=== PATIENT | male | born 1980 | race Caucasian/White ===

== ENCOUNTER 2018-10-26 23:58 | Emergency (ER) | payer BC, SELFPAY ==
[2018-10-27] MEDS ORDERED: IPRATROPIUM BROM 0.5MG/2.5ML ONE (00:40)
[2018-10-27] MEDS ORDERED: ALBUTEROL 2.5 MG/3 ML NEB SOL ONE (00:40)
[2018-10-27] MEDS ORDERED: ASPIRIN 81 MG CHEWABLE TABLET ONE (00:40)
[2018-10-27] MEDS ORDERED: HYDROCODONE/CHLORPHEN 5 ML/OSYR ONE (00:41)
[2018-10-27] MEDS ORDERED: ONDANSETRON 4 MG (ODT) TAB ONE (00:41)
[2018-10-27 01:14] LABS: Absolute Lymphocytes (CBC) 1.8 K/uL (0.7-4.9); Absolute Monocytes 0.9 K/uL (0.1-1.3); Absolute Neutrophil 3.8 K/uL (1.8-8.0); Basophils % 1.4 % (0-1.3); Eosinophils % 6.2 % (0-4.4); Hematocrit 48.1 % (39.6-49.0); MPV 9.7 fL (7.6-11.3); Monocytes % 12.7 % (3.3-12.3)
[2018-10-27 01:36] LABS: BUN Blood Urea Nitrogen 17 mg/dL (7-18); Bicarbonate 26 mmol/L (21-32); Glucose Level 123 mg/dL (74-106); Magnesium 2.2 mg/dL (1.8-2.4); NT PRO-BNP 9 pg/mL (<125); Potassium 3.7 mmol/L (3.5-5.1); Sodium Level 137 mmol/L (136-145); Troponin I < 0.02 ng/mL (0.0-0.045)
[2018-10-27] MEDS ORDERED: NA CHLORIDE 0.9% 1,000 ML ONE (02:07)
--- NOTE | 2018-10-27 02:19 | EDPHYS ---
Physician Documentation [facility] Name: Grzegorz Hamilton Age: 38 yrs Sex: Male : 1980 Arrival Date: 10/26/2018 Time: 23:58 Bed 26 Private MD: ED Physician Davin Amor HPI: 10/27 00:25 This 38 yrs old Male presents to ER via Ambulatory with complaints of Cough, cp Nausea, Decreased Appetite, Abscess. 00:25 The patient or guardian reports cough, that is constant, with no sputum. cp 00:25 Onset: The symptoms/episode began/occurred 4 day(s) ago. cp 00:25 Severity of symptoms: in the emergency department the symptoms are unchanged. cp Associated signs and symptoms: Pertinent positives: chest pain, nausea, sore throat, decreased appetite, Pertinent negatives: fever, active vomiting. Historical: - Allergies: 00:14 NKA; fc - Home Meds: 00:14 None [Active]; fc - PMHx: 00:14 Diverticulitis; GERD; fc - PSHx: 00:14 None; fc - Immunization history:: Last tetanus immunization: unknown, Flu vaccine is not up to date. - Social history:: Smoking status: Patient/guardian denies using tobacco, the patient reports quitting approximately 2 years ago, Patient/guardian denies using alcohol, street drugs. - Ebola Screening: : Patient negative for fever greater than or equal to 101.5 degrees Fahrenheit, and additional compatible Ebola Virus Disease symptoms Patient denies exposure to infectious person Patient denies travel to an Ebola-affected area in the 21 days before illness onset. ROS: 00:30 Constitutional: Positive for poor PO intake, Negative for fever. cp 00:30 Eyes: Negative for injury, pain, redness, and discharge. cp 00:30 ENT: Positive for sore throat, Negative for drainage from ear(s), ear pain, difficulty swallowing, difficulty handling secretions. 00:30 Cardiovascular: Positive for chest pain, of the lower sternum, Negative for edema, palpitations. 00:30 Respiratory: Positive for cough, with no reported sputum, shortness of breath, Negative for hemoptysis, wheezing. 00:30 Abdomen/GI: Positive for nausea, Negative for abdominal pain, diarrhea, constipation, active vomiting. 00:30 Back: Negative for pain at rest, pain with movement. 00:30 : Negative for urinary symptoms. 00:30 Skin: Negative for cellulitis, rash. 00:30 Neuro: Negative for altered mental status, headache, numbness, weakness. 00:30 All other systems are negative. Exam: 00:38 Constitutional: The patient appears in no acute distress, alert, awake, cp non-diaphoretic, non-toxic, well developed, well nourished. 00:38 Head/Face: Normocephalic, atraumatic. cp 00:38 Eyes: Periorbital structures: appear normal, Pupils: equal, round, and reactive to light and accomodation, Extraocular movements: intact throughout, Conjunctiva: normal, no exudate, no injection, Lids and lashes: appear normal, bilaterally. 00:38 ENT: External ear(s): are unremarkable, Ear canal(s): are normal, clear, TM's: bulging, is not appreciated, bilaterally, dullness, bilaterally, erythema, is not appreciated, bilaterally, Nose: is normal, Mouth: Lips: moist, Oral mucosa: pink and intact, moist, Posterior pharynx: is normal, airway is patent, no erythema, no exudate, Voice: is normal. 00:38 Neck: ROM/movement: is normal, is supple, without pain, no range of motions limitations, no meningismus, no nuchal rigidity, Lymph nodes: no appreciated lymphadenopathy. 00:38 Chest/axilla: Inspection: normal, Palpation: is normal, no crepitus, no tenderness. 00:38 Cardiovascular: Rate: normal, Rhythm: regular, Edema: is not appreciated, JVD: is not appreciated. 00:38 Respiratory: the patient does not display signs of respiratory distress, Respirations: labored breathing, is not present, intercostal retractions, are absent, splinting, is not noted, tachypnea, is not appreciated, Breath sounds: bronchial sounds, that are mild, are heard diffusely, decreased breath sounds, are not appreciated, stridor, is not appreciated, + upper airway congestion. 00:38 Abdomen/GI: Inspection: obese Bowel sounds: active, all quadrants, Palpation: abdomen is soft and non-tender, in all quadrants. 00:38 Back: pain, is absent, ROM is normal. 00:38 Skin: cellulitis, is not appreciated, no rash present. 00:38 Neuro: Orientation: to person, place \T\ time. Mentation: is normal, Cerebellar function: is grossly normal, Motor: moves all fours, strength is normal, Sensation: is normal. 01:05 ECG was reviewed by the Attending Physician. cp Vital Signs: 00:05 BP 109 / 73; Pulse 98; Resp 20; Temp 98.7(O); Pulse Ox 96% on R/A; Weight 127.01 kg fc (R); Height 6 ft. 0 in. (182.88 cm) (R); Pain 7/10; 01:16 BP 106 / 57; Pulse 94; Resp 18; Pulse Ox 100% on R/A; Pain 2/10; mg2 02:39 BP 102 / 46; Pulse 83; Resp 18; Pulse Ox 100% on R/A; Pain 0/10; mg2 00:05 Body Mass Index 37.97 (127.01 kg, 182.88 cm) fc MDM: 00:09 Patient medically screened. cp 01:00 Differential Diagnosis: Bronchitis Influenza Upper Respiratory Infection Sinusitis cp Pneumonia. 02:17 Data reviewed: vital signs, nurses notes, lab test result(s), radiologic studies, plain cp films, and as a result, I will discharge patient. 02:17 Test interpretation: by ED physician or midlevel provider: ECG, plain radiologic cp studies. Counseling: I had a detailed discussion with the patient and/or guardian regarding: the historical points, exam findings, and any diagnostic results supporting the discharge/admit diagnosis, lab results, radiology results, to return to the emergency department if symptoms worsen or persist or if there are any questions or concerns that arise at home. 02:17 Response to treatment: the patient's symptoms have markedly improved after treatment, cp and as a result, I will discharge patient. 12 00:20 Order name: Influenza Screen (a \T\ B) cp 10/27 00:20 Order name: Strep cp 10/27 00:23 Order name: CBC with Diff cp 10/27 00:23 Order name: BMP cp 10/27 00:23 Order name: Todd Screen Profile cp 10/27 00:23 Order name: Magnesium cp 10/27 00:23 Order name: Troponin I cp 10/27 00:23 Order name: BNP cp 10/27 01:19 Order name: CBC with Automated Diff; Complete Time: 01:21 EDMS 10/27 01:21 Interpretation: Normal except: RBC 5.60; MN% 12.7; EOSINOPHIL % 6.2; BASO% 1.4. cp 10/27 01:34 Order name: Influenza Screen (A ; Complete Time: 01:50 EDMS 10/27 01:34 Order name: Group A Streptococcus Rapid Sc; Complete Time: 01:50 EDMS 10/27 01:37 Order name: Basic Metabolic Panel; Complete Time: 01:50 EDMS 10/27 01:50 Interpretation: Normal except: GLUC 123; CRE 1.60; GFR 48. cp 10/27 01:37 Order name: Troponin I; Complete Time: 01:50 EDMS 10/27 01:37 Order name: NT PRO-BNP; Complete Time: 01:50 EDMS 10/27 00:23 Order name: IV; Complete Time: 00:56 cp 10/27 00:23 Order name: EKG; Complete Time: 00:24 cp 10/27 00:23 Order name: EKG - Nurse/Tech; Complete Time: 00:56 cp 10/27 01:21 Order name: XRAY Chest Pa And Lat (2 Views) cp 10/27 01:37 Order name: Magnesium; Complete Time: 01:50 EDMS 10/27 01:50 Order name: Todd Screen; Complete Time: 02:10 EDMS 06 01:54 Order name: PO challenge; Complete Time: 02:05 cp EC:05 Rate is 90 beats/min. Rhythm is regular. VA interval is normal. QRS interval is normal. cp QT interval is normal. Interpreted by me. Reviewed by me. Administered Medications: 00:56 Drug: Tussionex Pennkinetic ER 5 ml Route: PO; mg2 02:41 Follow up: Response: No adverse reaction; Marked relief of symptoms mg2 00:56 Drug: Albuterol 2.5 mg Route: Inhalation; mg2 02:41 Follow up: Response: No adverse reaction; Marked relief of symptoms mg2 00:56 Drug: AtroVENT Aerosol 0.5 mg Route: Inhalation; mg2 02:40 Follow up: Response: No adverse reaction; Marked relief of symptoms mg2 00:56 Drug: Zofran 4 mg Route: PO; mg2 02:40 Follow up: Response: No adverse reaction; Marked relief of symptoms mg2 00:56 Drug: Aspirin Chewable Tablet 324 mg Route: PO; mg2 02:39 Follow up: Response: No adverse reaction; Marked relief of symptoms mg2 02:05 Drug: NS 0.9% 1000 ml Route: IV; Rate: 1 bolus; Site: right antecubital; mg2 02:39 Follow up: Response: No adverse reaction; IV Status: Completed infusion mg2 Disposition: 19:16 Co-signature as Attending Physician, Davin Amor MD. Disposition: 10/27/18 02:18 Discharged to Home. Impression: Acute bronchitis, unspecified. - Condition is Stable. - Discharge Instructions: Acute Bronchitis, Adult. - Prescriptions for Zithromax Z- Robert 250 mg Oral Tablet - take 1 tablet by ORAL route as directed for 5 days Day 1 - take two (2) tablets one time. Day 2, 3, 4 , 5 take one (1) tablet once daily.; 6 tablet. Albuterol Sulfate 90 mcg/actuation - inhale 1-2 puff by INHALATION route every 4-6 hours; 1 Inhaler. Guaifenesin AC 10- 100 mg/5 mL Oral Liquid - take 10 milliliter by ORAL route every 4 hours As needed; 240 milliliter. - Medication Reconciliation Form, Thank You Letter, Antibiotic Education, Prescription Opioid Use, Work release form form. - Follow up: Private Physician; When: 2 - 3 days; Reason: symptoms continue. - Problem is new. - Symptoms have improved. Signatures: Dispatcher [employer] EDPA Aimee Rutledge RN RN Stuart Givens, TOMMY PA cp Davin Amor MD MD Mejia Crystal RN RN mg2 Corrections: (The following items were deleted from the chart) 02:52 02:18 10/27/2018 02:18 Discharged to Home. Impression: Acute bronchitis, unspecified. mg2 Condition is Stable. Forms are Medication Reconciliation Form, Thank You Letter, Antibiotic Education, Prescription Opioid Use. Follow up: Private Physician; When: 2 - 3 days; Reason: symptoms continue. Problem is new. Symptoms have improved. cp
--- NOTE | 2018-10-27 02:19 | ER ---
Nurse's Notes [facility] Name: Grzegorz Hamilton Age: 38 yrs Sex: Male : 1980 Arrival Date: 10/26/2018 Time: 23:58 Bed 26 Private MD: Diagnosis: Acute bronchitis, unspecified Presentation: 10/27 00:05 Presenting complaint: Patient states: that since Wednesday he has had a sore throat, dry fc cough, nausea, decreased appetite, shortness of breath and feels as if there is something crawling in his ears. Denies any fever. Transition of care: patient was not received from another setting of care. Onset of symptoms was October 23, 2018. Risk Assessment: Do you want to hurt yourself or someone else? Patient reports no desire to harm self or others. Initial Sepsis Screen: Does the patient meet any 2 criteria? HR > 90 bpm. Yes Does the patient have a suspected source of infection? No. Patient's initial sepsis screen is negative. Care prior to arrival: None. 00:05 Method Of Arrival: Ambulatory fc 00:05 Acuity: WESLEY 3 fc Triage Assessment: 01:07 GI: Reports. mg2 Historical: - Allergies: 00:14 NKA; fc - Home Meds: 00:14 None [Active]; fc - PMHx: 00:14 Diverticulitis; GERD; fc - PSHx: 00:14 None; fc - Immunization history:: Last tetanus immunization: unknown, Flu vaccine is not up to date. - Social history:: Smoking status: Patient/guardian denies using tobacco, the patient reports quitting approximately 2 years ago, Patient/guardian denies using alcohol, street drugs. - Ebola Screening: : Patient negative for fever greater than or equal to 101.5 degrees Fahrenheit, and additional compatible Ebola Virus Disease symptoms Patient denies exposure to infectious person Patient denies travel to an Ebola-affected area in the 21 days before illness onset. Screenin:13 Abuse screen: Denies threats or abuse. Nutritional screening: No deficits noted. fc Tuberculosis screening: No symptoms or risk factors identified. Fall Risk None identified. Assessment: 01:04 General: Appears in no apparent distress. comfortable, Behavior is calm, cooperative. mg2 Pain: Complains of pain in chest Pain does not radiate. Pain currently is 3 out of 10 on a pain scale. Quality of pain is described as aching, Pain began gradually, 1 day ago. Is intermittent. Neuro: Level of Consciousness is awake, alert, obeys commands, Oriented to person, place, time, situation. Cardiovascular: Capillary refill < 3 seconds Patient's skin is warm and dry. Respiratory: Airway is patent Respiratory effort is even, unlabored, Respiratory pattern is regular, symmetrical. GI: Abdomen is flat. : No signs and/or symptoms were reported regarding the genitourinary system. EENT:. Derm: Skin is intact, is healthy with good turgor, Skin is pink, warm \T\ dry. normal. Musculoskeletal: No signs and/or symptoms reported regarding the musculoskeletal system. 02:37 Reassessment: Patient appears in no apparent distress at this time. Patient and/or mg2 family updated on plan of care and expected duration. Pain level reassessed. Patient is alert, oriented x 3, equal unlabored respirations, skin warm/dry/pink. patient is for discharge after completing the iv fluid. Vital Signs: 00:05 BP 109 / 73; Pulse 98; Resp 20; Temp 98.7(O); Pulse Ox 96% on R/A; Weight 127.01 kg fc (R); Height 6 ft. 0 in. (182.88 cm) (R); Pain 7/10; 01:16 BP 106 / 57; Pulse 94; Resp 18; Pulse Ox 100% on R/A; Pain 2/10; mg2 02:39 BP 102 / 46; Pulse 83; Resp 18; Pulse Ox 100% on R/A; Pain 0/10; mg2 00:05 Body Mass Index 37.97 (127.01 kg, 182.88 cm) ED Course: 10/26 23:58 Patient arrived in ED. al2 10/27 00:05 Arm band placed on Patient placed in an exam room, on a stretcher. fc 00:09 Stuart Givens PA is PHCP. cp 00:09 Davin Amor MD is Attending Physician. cp 00:12 Triage completed. fc 00:13 Patient has correct armband on for positive identification. Bed in low position. Call light in reach. 00:29 Mejia Crystal, MAREK is Primary Nurse. mg2 00:56 No provider procedures requiring assistance completed. Inserted saline lock: 20 gauge mg2 in right antecubital area, using aseptic technique. Blood collected. 01:40 Patient moved to radiology via wheelchair. kw 01:40 X-ray completed. Patient tolerated procedure well. kw 01:40 Patient moved back from radiology. kw 02:52 IV discontinued, intact, bleeding controlled, No redness/swelling at site. Pressure mg2 dressing applied. 06:08 XRAY Chest Pa And Lat (2 Views) In Process Unspecified. EDMS Administered Medications: 00:56 Drug: Tussionex Pennkinetic ER 5 ml Route: PO; mg2 02:41 Follow up: Response: No adverse reaction; Marked relief of symptoms mg2 00:56 Drug: Albuterol 2.5 mg Route: Inhalation; mg2 02:41 Follow up: Response: No adverse reaction; Marked relief of symptoms mg2 00:56 Drug: AtroVENT Aerosol 0.5 mg Route: Inhalation; mg2 02:40 Follow up: Response: No adverse reaction; Marked relief of symptoms mg2 00:56 Drug: Zofran 4 mg Route: PO; mg2 02:40 Follow up: Response: No adverse reaction; Marked relief of symptoms mg2 00:56 Drug: Aspirin Chewable Tablet 324 mg Route: PO; mg2 02:39 Follow up: Response: No adverse reaction; Marked relief of symptoms mg2 02:05 Drug: NS 0.9% 1000 ml Route: IV; Rate: 1 bolus; Site: right antecubital; mg2 02:39 Follow up: Response: No adverse reaction; IV Status: Completed infusion mg2 Outcome: 02:18 Discharge ordered by . cp 02:52 Discharged to home ambulatory, with family. mg2 02:52 Condition: stable 02:52 Discharge instructions given to patient, family, Instructed on discharge instructions, follow up and referral plans. medication usage, Demonstrated understanding of instructions, follow-up care, medications, Prescriptions given X 3. 02:52 Patient left the ED. mg2 Signatures: Dispatcher [employer] EDMS Aimee Rutledge RN RN Kelsie Roman Corey, PA PA cp Love, Angelica al2 Gardose, Michele, RN RN mg2
[2018-10-27 02:59] VITALS: TEMP 98.7
[2018-10-27 03:00] VITALS: O2SAT 100
[2018-10-27 03:01] VITALS: BP 102/46
--- NOTE | 2018-10-27 07:10 | RAD REPORT ---
EXAM DESCRIPTION: RAD - Chest Pa And Lat (2 Views) - 10/27/2018 1:43 am CLINICAL HISTORY: Persistent cough, shortness of breath COMPARISON: January 2018 TECHNIQUE: PA and lateral views of the chest were obtained. FINDINGS: The lungs are clear. Lung markings are similar to comparison. Heart size is normal and ce ntral vasculature is within normal limits. No pleural effusion or pneumothorax seen. No acute bony finding noted. No aortic abnormality. IMPRESSION: No acute cardiopulmonary process. No significant interval change.
--- NOTE | 2018-10-27 11:29 | EKG ---
Test Date: 2018-10-27 Test Time: 00:52:42 Cloth Bin Packer: GM MEASUREMENT RESULTS: Intervals: Rate: 90 SC: 154 QRSD: 90 QT: 360 QTc: 440 [place]: P: 50 SC: 154 QRS: 11 T: 45 INTERPRETIVE STATEMENTS: Normal sinus rhythm Normal ECG Compared to ECG 04/01/2015 14:17:43 No significant changes Electronically Signed On 10-27-18 11:27:44 MECH[employer]ICAL EQUIPMENT SALES ENGINEER by Alan Augustin
== END 2018-10-27 02:52 | disposition home or self-care (01) ==
LOC: ER 23:58
DX: J20.9 Acute bronchitis, unspecified (principal); Z87.891 Personal history of nicotine dependence
CPT/HCPCS: 36415; 71046; 80048; 83735; 83880; 84484; 85025; 86308; 87070; 87081; 87804; 93005; 96360; 99284; J7030

== ENCOUNTER 2018-12-30 14:01 | Emergency (ER) | payer BC ==
--- NOTE | 2018-12-30 17:44 | RAD REPORT ---
EXAM DESCRIPTION: US - Extremity Venous Uni Ltd - 12/30/2018 5:39 pm CLINICAL HISTORY: Left leg pain COMPARISON: None. TECHNIQUE: Real-time sonographic evaluation of the left lower extremity deep venous system was perfo rmed. FINDINGS: Normal compressibility, flow augmentation, phasic flow and spontaneous flow are identified in the left lower extremity common femoral, superficial femoral, popliteal and posterior tibial vein s. No intraluminal filling defects seen. IMPRESSION: No DVT in the left lower extremity.
--- NOTE | 2018-12-30 17:44 | RAD REPORT ---
EXAM DESCRIPTION: RAD - Pelvis - 12/30/2018 5:33 pm CLINICAL HISTORY: Pelvis, left hip and left leg pain COMPARISON: None. TECHNIQUE: AP imaging of the pelvis was obtained. FINDINGS: No fracture or focal abnormality of the bony pelvis. Limited lower lumbar assessment shows no gross abnormality. The SI joints are unremarkable. No AVN or focal femoral head abnormality identified. No significant hip joint degenerative changes no rupert. No joint effusion or periarticular abnormality seen. IMPRESSION: Negative pelvis
--- NOTE | 2018-12-30 18:09 | RAD REPORT ---
EXAM DESCRIPTION: RAD - Lumbar Spine 3 Views - 12/30/2018 5:44 pm CLINICAL HISTORY: Left lower extremity radiculopathy COMPARISON: None. FINDINGS: A three-view lumbar spine examination was performed. Very subtle concavity to the superior endplate L2 is present. When compared to the reconstructed imaging from January 2018, this does not ap pear to be significantly different. An acute compression fracture is not seen. Slight narrowing of th e L1-2 disc space is present with endplate spurring. No fracture or acute bony process seen. No other disc space narrowing seen. No significant facet joint degenerative change. No pars defects identifie d. IMPRESSION: Mild lumbar spine degenerative change present centered around the L1-2 disc and endplate s. No acute finding.
[2018-12-30 18:43] LABS: Absolute Lymphocytes (CBC) 2.2 K/uL (0.7-4.9); Absolute Monocytes 0.5 K/uL (0.1-1.3); Absolute Neutrophil 2.9 K/uL (1.8-8.0); Basophils % 2.5 % (0-1.3); Eosinophils % 6.2 % (0-4.4); Hematocrit 43.2 % (39.6-49.0); Lymphocytes % 36.2 % (15.3-44.8); MPV 9.6 fL (7.6-11.3); Monocytes % 7.5 % (3.3-12.3); RBC Red Blood Cell Count 4.99 M/uL (4.33-5.43)
[2018-12-30 19:09] LABS: Potassium 3.6 mmol/L (3.5-5.1)
--- NOTE | 2018-12-30 19:53 | ER ---
Nurse's Notes [facility] Name: Grzegorz Hamilton Age: 38 yrs Sex: Male : 1980 Arrival Date: 12/30/2018 Time: 14:03 Bed 23 Private MD: Diagnosis: Pain in left leg Presentation: 12/30 14:21 Presenting complaint: Patient states: left thigh burning pain and numbness that began aa5 Wednesday. Pt states "now my leg has bruises on it". Pt states "I also peed in the bed last night and it had never happened to me before". Transition of care: patient was not received from another setting of care. Onset of symptoms was December 2018. Risk Assessment: Do you want to hurt yourself or someone else? Patient reports no desire to harm self or others. Initial Sepsis Screen: Does the patient meet any 2 criteria? No. Patient's initial sepsis screen is negative. Does the patient have a suspected source of infection? No. Patient's initial sepsis screen is negative. Care prior to arrival: None. 14:21 Method Of Arrival: Ambulatory aa5 14:21 Acuity: WESLEY 3 aa5 Historical: - Allergies: 14:23 NKA; aa5 - PMHx: 14:23 Diverticulitis; GERD; aa5 - PSHx: 14:23 None; aa5 - Immunization history:: Flu vaccine is not up to date. - Social history:: Smoking status: Patient/guardian denies using tobacco. - Ebola Screening: : No symptoms or risks identified at this time. Screenin:00 Abuse screen: Denies threats or abuse. Denies injuries from another. Nutritional ca1 screening: No deficits noted. Tuberculosis screening: No symptoms or risk factors identified. Fall Risk None identified. Assessment: 16:00 General: Appears in no apparent distress. comfortable, Behavior is calm, cooperative, ca1 appropriate for age. Pain: Complains of pain in left leg Pain currently is 6 out of 10 on a pain scale. Neuro: Level of Consciousness is awake, alert, obeys commands, Oriented to person, place, time, situation. Cardiovascular: Heart tones S1 S2 present Capillary refill < 3 seconds Patient's skin is warm and dry. Respiratory: Airway is patent Respiratory effort is even, unlabored, Respiratory pattern is regular, symmetrical, Breath sounds are clear bilaterally. GI: No signs and/or symptoms were reported involving the gastrointestinal system. : No signs and/or symptoms were reported regarding the genitourinary system. EENT: No signs and/or symptoms were reported regarding the EENT system. Derm: Skin is intact, is healthy with good turgor, Skin is pink, warm \\T\\ dry. Musculoskeletal: Circulation, motion, and sensation intact. 17:06 Reassessment: Patient appears in no apparent distress at this time. Patient and/or ca1 family updated on plan of care and expected duration. Pain level reassessed. Patient is alert, oriented x 3, equal unlabored respirations, skin warm/dry/pink. US tech at bedside. 17:32 Reassessment: Pt in radiology. ca1 18:30 Reassessment: Patient appears in no apparent distress at this time. Patient and/or ca1 family updated on plan of care and expected duration. Pain level reassessed. Patient is alert, oriented x 3, equal unlabored respirations, skin warm/dry/pink. 19:50 Reassessment: Patient appears in no apparent distress at this time. Patient is alert, ca1 oriented x 3, equal unlabored respirations, skin warm/dry/pink. Pt sleeping, family at bedside. Vital Signs: 14:23 BP 114 / 81; Pulse 99; Resp 18 S; Temp 98.6(TE); Pulse Ox 95% on R/A; Weight 122.47 kg aa5 (R); Height 6 ft. 0 in. (182.88 cm) (R); Pain 7/10; 17:31 BP 132 / 96; Pulse 61; Resp 18; Pulse Ox 100% on R/A; ca1 18:30 BP 123 / 89; Pulse 91; Resp 18; Pulse Ox 98% on R/A; ca1 19:50 BP 134 / 90; Pulse 79; Resp 18; Pulse Ox 97% on R/A; ca1 14:23 Body Mass Index 36.62 (122.47 kg, 182.88 cm) aa5 ED Course: 14:03 Patient arrived in ED. as 14:21 Arm band placed on. aa5 14:23 Triage completed. aa5 16:00 Patient has correct armband on for positive identification. Bed in low position. Call ca1 light in reach. Side rails up X 1. Pulse ox on. NIBP on. 16:16 Pricila Barker, RN is Primary Nurse. ca1 16:31 Magdaleno Morgan PA is PHCP. [facility] 16:31 Aroldo Siddiqi MD is Attending Physician. jmm 17:33 Lumbar Spine (3 Views) XRAY In Process Unspecified. EDMS 17:33 Pelvis XRAY In Process Unspecified. EDMS 17:39 US Extremity Venous Unilateral Ltd In Process Unspecified. EDMS 17:58 Missed attempt(s): 20 gauge in right antecubital area. lt1 17:58 Missed attempt(s): 20 gauge in right in left antecubital area. lt1 17:59 Initial lab(s) drawn, by me, sent to lab. lt1 18:30 Inserted saline lock: 20 gauge in right antecubital area, using aseptic technique. ca1 Blood collected. 20:07 No provider procedures requiring assistance completed. IV discontinued, intact, ca1 bleeding controlled, No redness/swelling at site. Pressure dressing applied. Administered Medications: No medications were administered Outcome: 19:53 Discharge ordered by MD. [facility] 20:07 Discharged to home ambulatory. ca1 20:07 Condition: stable 20:07 Discharge instructions given to patient, Instructed on discharge instructions, follow up and referral plans. medication usage, Demonstrated understanding of instructions, follow-up care, medications. 20:08 Patient left the ED. ca1 Signatures: Dispatcher [employer] EDNV Magdaleno Morgan PA PA jmm Martinez, Amelia as Calderon, Audri, RN RN aa5 Pricila Barker, RN RN ca1 Gayla Baker lt1
--- NOTE | 2018-12-30 19:53 | EDPHYS ---
Physician Documentation [facility] Name: Grzegorz Hamilton Age: 38 yrs Sex: Male : 1980 Arrival Date: 12/30/2018 Time: 14:03 Bed 23 Private MD: ED Physician Aroldo Siddiqi HPI: 12/30 16:54 This 38 yrs old Male presents to ER via Ambulatory with complaints of Leg jmm Pain. 16:54 The patient presents with pain. Onset: The symptoms/episode began/occurred gradually, 4 jmm day(s) ago. Associated signs and symptoms: Pertinent negatives fever. This is a 38 year old male with a history of GERD that presents to the ED with complaints of left leg pain beginning 4 days ago. Pain is described as burning. Patient denies back pain. Denies fever, denies fecal incontinence. . Historical: - Allergies: 14:23 NKA; aa5 - PMHx: 14:23 Diverticulitis; GERD; aa5 - PSHx: 14:23 None; aa5 - Immunization history:: Flu vaccine is not up to date. - Social history:: Smoking status: Patient/guardian denies using tobacco. - Ebola Screening: : No symptoms or risks identified at this time. ROS: 16:54 Constitutional: Negative for fever, chills, and weight loss, Cardiovascular: Negative jmm for chest pain, palpitations, and edema, Respiratory: Negative for shortness of breath, cough, wheezing, and pleuritic chest pain, Back: Negative for injury and pain. 16:54 MS/extremity: Positive for pain. 16:54 All other systems are negative. Exam: 16:54 Constitutional: This is a well developed, well nourished patient who is awake, alert, jmm and in no acute distress. Head/Face: atraumatic. Eyes: EOMI, no conjunctival erythema appreciated ENT: Moist Mucus Membranes Neck: Trachea midline, Supple Chest/axilla: Normal chest wall appearance and motion. Cardiovascular: Regular rate and rhythm. No edema appreciated Respiratory: Normal respirations, no respiratory distress appreciated Abdomen/GI: Non distended, soft 16:54 Musculoskeletal/extremity: FROM appreciated ot the left lateral leg, no induration is appreciated, compartments are soft, NVI. 16:54 Skin: Appearance: Color: normal in color. 16:54 Neuro: Orientation: is normal, Mentation: is normal, Memory: is normal. 16:54 Psych: Behavior/mood is pleasant, cooperative. Vital Signs: 14:23 BP 114 / 81; Pulse 99; Resp 18 S; Temp 98.6(TE); Pulse Ox 95% on R/A; Weight 122.47 kg aa5 (R); Height 6 ft. 0 in. (182.88 cm) (R); Pain 7/10; 17:31 BP 132 / 96; Pulse 61; Resp 18; Pulse Ox 100% on R/A; ca1 18:30 BP 123 / 89; Pulse 91; Resp 18; Pulse Ox 98% on R/A; ca1 19:50 BP 134 / 90; Pulse 79; Resp 18; Pulse Ox 97% on R/A; ca1 14:23 Body Mass Index 36.62 (122.47 kg, 182.88 cm) aa5 MDM: 16:54 Patient medically screened. valentin 19:51 Data reviewed: vital signs, nurses notes. Counseling: I had a detailed discussion with valentin the patient and/or guardian regarding: the historical points, exam findings, and any diagnostic results supporting the discharge/admit diagnosis, lab results, radiology results, the need for outpatient follow up, to return to the emergency department if symptoms worsen or persist or if there are any questions or concerns that arise at home. ED course: Patient is alert and non toxic in appearance in the ED. Symptoms appear neuropathic. Patient is advised to follow up with PCP for further evaluation. Patient is given return precautions. Patient understood and agrees with the plan of care. . 12/30 16:55 Order name: CBC with Diff; Complete Time: 18:49 [facility] 12/30 16:55 Order name: US Extremity Venous Unilateral Ltd; Complete Time: 18:08 [facility] 12/30 16:55 Order name: Lumbar Spine (3 Views) XRAY; Complete Time: 18:13 [facility] 12/30 16:55 Order name: Pelvis XRAY; Complete Time: 18:08 [facility] 12/30 18:18 Order name: Basic Metabolic Panel; Complete Time: 19:14 [facility] 12/30 17:31 Order name: IV Saline Lock; Complete Time: 17:38 ca1 12/30 18:18 Order name: Labs - recollect needed; Complete Time: 18:32 eb Administered Medications: No medications were administered Disposition: 12/30/18 19:53 Discharged to Home. Impression: Pain in left leg. - Condition is Stable. - Discharge Instructions: Musculoskeletal Pain. - Prescriptions for Zanaflex 4 mg Oral Tablet - take 1 tablet by ORAL route every 8 hours As needed; 20 tablet. Medrol (Robert) 4 mg Oral Tablets, Dose Pack - take 1 tablet by ORAL route as directed - follow package instructions; 1 packet. - Medication Reconciliation Form, Thank You Letter, Antibiotic Education, Prescription Opioid Use form. - Follow up: Private Physician; When: 2 - 3 days; Reason: Recheck today's complaints, Continuance of care, Re-evaluation by your physician. Addendum: 01/02/2019 07:47 Co-signature as Attending Physician, Aroldo Siddiqi MD I agree with the assessment and k dr plan of care. Signatures: Dispatcher [employer] [facility] Aroldo Siddiqi MD MD kdr Mickail, Joel, PA PA jmm Calderon, Audri, RN RN aa5 Tabby Shankar Cheryl, RN RN ca1 Corrections: (The following items were deleted from the chart) 12/30 18:17 16:56 BASIC METABOLIC PANEL+C.LAB.BRZ ordered. [facility] 20:08 19:53 12/30/2018 19:53 Discharged to Home. Impression: Pain in left leg. Condition is ca1 Stable. Forms are Medication Reconciliation Form, Thank You Letter, Antibiotic Education, Prescription Opioid Use. Follow up: Private Physician; When: 2 - 3 days; Reason: Recheck today's complaints, Continuance of care, Re-evaluation by your physician. lynn
[2018-12-30 20:54] VITALS: TEMP 98.6
[2018-12-30 20:57] VITALS: BP 134/90; O2SAT 97
== END 2018-12-30 20:08 | disposition home or self-care (01) ==
LOC: ER 14:01
DX: M79.605 Pain in left leg (principal)
CPT/HCPCS: 36415; 72100; 72170; 80048; 85025; 93971; 99284

== ENCOUNTER 2019-03-12 20:37 | Emergency (ER) | payer BC ==
[2019-03-12] MEDS ORDERED: METHYLPREDNISOLONE 125 MG INJ ONE (22:03)
[2019-03-12] MEDS ORDERED: ALBUTEROL 2.5 MG/3 ML NEB SOL ONE (22:03)
--- NOTE | 2019-03-12 22:55 | ER ---
Nurse's Notes [facility] Name: Grzegorz Hamilton Age: 38 yrs Sex: Male : 1980 Arrival Date: 03/12/2019 Time: 20:38 Bed 16 Private MD: Diagnosis: Acute bronchitis Presentation: 03/12 20:41 Presenting complaint: Patient states: Starting Wednesday I have had fever, cough, body jb4 aches, and chills. I also have a knot on my knee that has been there for about a week. 20:41 Transition of care: patient was not received from another setting of care. Onset of jb4 symptoms was March 07, 2019. Risk Assessment: Do you want to hurt yourself or someone else? Patient reports no desire to harm self or others. Initial Sepsis Screen: Does the patient meet any 2 criteria? HR > 90 bpm. Yes Does the patient have a suspected source of infection? No. Patient's initial sepsis screen is negative. Care prior to arrival: None. 20:41 Method Of Arrival: Ambulatory jb4 20:41 Acuity: WESLEY 4 jb4 Triage Assessment: 20:41 General: Appears in no apparent distress. uncomfortable, Behavior is calm, cooperative, jb4 appropriate for age. Pain: Complains of pain in chest Pain does not radiate. Pain currently is 5 out of 10 on a pain scale. Quality of pain is described as aching, Pain began wednesday Is intermittent, Aggravated by Cough. EENT: Reports Soar throat. Neuro: Level of Consciousness is awake, alert, obeys commands, Oriented to person, place, time, situation. Cardiovascular: Patient's skin is warm and dry. Respiratory: Reports cough that is productive, Airway is patent Respiratory effort is even, unlabored, Respiratory pattern is regular, symmetrical, Breath sounds with wheezes bilaterally. GI: Reports diarrhea, nausea, vomiting, 2 episodes of Vomiting, and Diarrhea this morning. : No signs and/or symptoms were reported regarding the genitourinary system. Derm: Skin is intact, Skin is pink, warm \T\ dry. Musculoskeletal: Circulation, motion, and sensation intact. Range of motion: intact in all extremities. Historical: - Allergies: 20:41 NKA; jb4 - Home Meds: 20:41 None [Active]; jb4 - PMHx: 20:41 Diverticulitis; GERD; jb4 - PSHx: 20:41 None; jb4 - Immunization history:: Adult Immunizations up to date, Flu vaccine is not up to date. - Social history:: Smoking status: Patient/guardian denies using tobacco, the patient reports quitting approximately 3 years ago, Patient/guardian denies using alcohol. - Ebola Screening: : No symptoms or risks identified at this time. Screenin:41 Abuse screen: Denies threats or abuse. Nutritional screening: No deficits noted. jb4 Tuberculosis screening: Possible symptoms: recent fever, recent night sweats. Fall Risk None identified. Assessment: 20:41 General: see triage assessment.. GI: Reports diarrhea, nausea, vomiting. jb4 21:30 Reassessment: Patient appears in no apparent distress at this time. Patient and/or jb4 family updated on plan of care and expected duration. Pain level reassessed. Patient is alert, oriented x 3, equal unlabored respirations, skin warm/dry/pink. 22:33 Reassessment: Patient appears in no apparent distress at this time. Patient and/or jb4 family updated on plan of care and expected duration. Pain level reassessed. Patient is alert, oriented x 3, equal unlabored respirations, skin warm/dry/pink. 23:26 Reassessment: Patient appears in no apparent distress at this time. Patient and/or jb4 family updated on plan of care and expected duration. Pain level reassessed. Patient is alert, oriented x 3, equal unlabored respirations, skin warm/dry/pink. PT left ED ambulatory with steady gait, no IV during visit to ED, discharged home with significant other. 23:26 Respiratory: Breath sounds are clear in left upper lobe, left lower lobe, left jb4 posterior upper lobe and left posterior lower lobe Breath sounds with wheezes in right upper lobe, right middle lobe, right lower lobe, right posterior upper lobe, right posterior middle lobe and right posterior lower lobe. Vital Signs: 20:41 BP 141 / 95; Pulse 98; Resp 16; Temp 99.0(O); Pulse Ox 97% on R/A; Weight 113.4 kg (R); jb4 Height 6 ft. 0 in. (182.88 cm) (R); Pain 5/10; 21:30 BP 128 / 87; Pulse 94; Resp 16; Pulse Ox 95% on R/A; jb4 22:30 BP 123 / 86; Pulse 89; Resp 16; Pulse Ox 96% on R/A; jb4 20:41 Body Mass Index 33.91 (113.40 kg, 182.88 cm) jb4 ED Course: 20:38 Patient arrived in ED. es 20:41 Arm band placed on right wrist. jb4 20:41 Patient has correct armband on for positive identification. Bed in low position. Call jb4 light in reach. Side rails up X 1. Pulse ox on. NIBP on. 20:42 Jerad Rodriguez, RN is Primary Nurse. jb4 20:57 Triage completed. jb4 21:22 Juliano Benson PA is PHCP. jr8 21:22 Davin Amor MD is Attending Physician. jr8 21:53 XRAY Chest Pa And Lat (2 Views) In Process Unspecified. EDMS 23:26 No provider procedures requiring assistance completed. Patient did not have IV access jb4 during this emergency room visit. Administered Medications: 22:20 Drug: Albuterol 2.5 mg Route: Inhalation; jb4 22:24 Drug: SOLU-Medrol 125 mg Route: IM; Site: left gluteus; jb4 23:07 Follow up: Response: No adverse reaction jb4 22:42 Drug: Albuterol 2.5 mg Route: Inhalation; jb4 23:04 Drug: Albuterol 2.5 mg Route: Inhalation; jb4 23:29 Follow up: Response: No adverse reaction; Wheezing diminished jb4 Outcome: 22:55 Discharge ordered by . jr8 23:26 Discharged to home ambulatory, with significant other. jb4 23:26 Condition: stable 23:26 Discharge instructions given to patient, Instructed on discharge instructions, follow up and referral plans. medication usage, Demonstrated understanding of instructions, follow-up care, medications, Prescriptions given X 3. 23:29 Patient left the ED. jb4 Signatures: Dispatcher [employer] EDMS Britany Marks Josh, PA PA jr8 Jerad Rodriguez, RN RN jb4
--- NOTE | 2019-03-12 22:55 | EDPHYS ---
Physician Documentation [facility] Name: Grzegorz Hamilton Age: 38 yrs Sex: Male : 1980 Arrival Date: 03/12/2019 Time: 20:38 Bed 16 Private MD: ED Physician Davin Amor HPI: 03/12 22:19 This 38 yrs old Male presents to ER via Ambulatory with complaints of General jr8 Weakness, Fever, Vomiting. 22:19 The patient or guardian reports cough, that is intermittent, described as moderate, jr8 with no sputum. Onset: The symptoms/episode began/occurred gradually, 5 day(s) ago. Severity of symptoms: At their worst the symptoms were moderate, in the emergency department the symptoms are unchanged. Modifying factors: The symptoms are alleviated by nothing, the symptoms are aggravated by nothing. Associated signs and symptoms: Pertinent positives: fever, rhinorrhea, sore throat, vomiting. The patient has not experienced similar symptoms in the past. The patient has not recently seen a physician. Historical: - Allergies: 20:41 NKA; jb4 - Home Meds: 20:41 None [Active]; jb4 - PMHx: 20:41 Diverticulitis; GERD; jb4 - PSHx: 20:41 None; jb4 - Immunization history:: Adult Immunizations up to date, Flu vaccine is not up to date. - Social history:: Smoking status: Patient/guardian denies using tobacco, the patient reports quitting approximately 3 years ago, Patient/guardian denies using alcohol. - Ebola Screening: : No symptoms or risks identified at this time. ROS: 22:19 Eyes: Negative for injury, pain, redness, and discharge, Neck: Negative for injury, jr8 pain, and swelling, Cardiovascular: Negative for chest pain, palpitations, and edema, Back: Negative for injury and pain, MS/Extremity: Negative for injury and deformity, Skin: Negative for injury, rash, and discoloration, Neuro: Negative for headache, weakness, numbness, tingling, and seizure. 22:19 Constitutional: Positive for body aches, chills, fever, malaise. 22:19 ENT: Positive for rhinorrhea, sinus congestion, sore throat. 22:19 Respiratory: Positive for cough, wheezing, Negative for dyspnea on exertion, shortness of breath, sputum production. 22:19 Abdomen/GI: Positive for nausea and vomiting, Negative for abdominal pain, diarrhea, abdominal distension, anorexia, dysphagia, hematemesis, black/tarry stool, rectal pain, rectal bleeding, bowel incontinence, flatulence. Exam: 22:19 Eyes: Pupils equal round and reactive to light, extra-ocular motions intact. Lids and jr8 lashes normal. Conjunctiva and sclera are non-icteric and not injected. Cornea within normal limits. Periorbital areas with no swelling, redness, or edema. ENT: Nares patent. No nasal discharge, no septal abnormalities noted. Tympanic membranes are normal and external auditory canals are clear. Oropharynx with no redness, swelling, or masses, exudates, or evidence of obstruction, uvula midline. Mucous membranes moist. Neck: Trachea midline, no thyromegaly or masses palpated, and no cervical lymphadenopathy. Supple, full range of motion without nuchal rigidity, or vertebral point tenderness. No Meningismus. Cardiovascular: Regular rate and rhythm with a normal S1 and S2. No gallops, murmurs, or rubs. Normal PMI, no JVD. No pulse deficits. Abdomen/GI: Soft, non-tender, with normal bowel sounds. No distension or tympany. No guarding or rebound. No evidence of tenderness throughout. Back: No spinal tenderness. No costovertebral tenderness. Full range of motion. Skin: Warm, dry with normal turgor. Normal color with no rashes, no lesions, and no evidence of cellulitis. MS/ Extremity: Pulses equal, no cyanosis. Neurovascular intact. Full, normal range of motion. Neuro: Awake and alert, GCS 15, oriented to person, place, time, and situation. Cranial nerves II-XII grossly intact. Motor strength 5/5 in all extremities. Sensory grossly intact. Cerebellar exam normal. Normal gait. 22:19 Respiratory: the patient does not display signs of respiratory distress, Respirations: normal, symetrical, no use of accessory muscles, no grunting, no evidence of nasal flaring, no prolonged exhalations, no pursed lip breathing, no retractions, no shallow respirations, no splinting, no tachypnea, Breath sounds: wheezing: expiratory that is mild, is heard in the left posterior lower lobe, right posterior middle lobe and right posterior lower lobe. Vital Signs: 20:41 BP 141 / 95; Pulse 98; Resp 16; Temp 99.0(O); Pulse Ox 97% on R/A; Weight 113.4 kg (R); jb4 Height 6 ft. 0 in. (182.88 cm) (R); Pain 5/10; 21:30 BP 128 / 87; Pulse 94; Resp 16; Pulse Ox 95% on R/A; jb4 22:30 BP 123 / 86; Pulse 89; Resp 16; Pulse Ox 96% on R/A; jb4 20:41 Body Mass Index 33.91 (113.40 kg, 182.88 cm) jb4 MDM: 21:36 Patient medically screened. jr8 22:53 Data reviewed: vital signs, nurses notes, lab test result(s), radiologic studies, plain jr8 films. Data interpreted: Pulse oximetry: on room air is 96 %. Interpretation: acceptable. Test interpretation: by ED physician or midlevel provider: plain radiologic studies, No acute osseous, pulmonary, or cardiac findings on CXR. Counseling: I had a detailed discussion with the patient and/or guardian regarding: the historical points, exam findings, and any diagnostic results supporting the discharge/admit diagnosis, lab results, radiology results, the need for outpatient follow up, a family practitioner, to return to the emergency department if symptoms worsen or persist or if there are any questions or concerns that arise at home. 22:59 Differential Diagnosis: Bronchitis Influenza Upper Respiratory Infection Sinusitis jr8 Pharyngitis Pneumonia. 22:59 ED course: Patient feeling better. Labs and images without acute finding. Most likely jr8 viral bronchitis. Discussed this with patient and good with diagnosis and Rx plan . 03/12 21:13 Order name: Flu; Complete Time: 22:00 4 03/12 21:13 Order name: Strep; Complete Time: 21:42 4 03/12 21:37 Order name: XRAY Chest Pa And Lat (2 Views) 8 03/12 21:42 Order name: Throat Culture EDMS Administered Medications: 22:20 Drug: Albuterol 2.5 mg Route: Inhalation; jb4 22:24 Drug: SOLU-Medrol 125 mg Route: IM; Site: left gluteus; jb4 23:07 Follow up: Response: No adverse reaction jb4 22:42 Drug: Albuterol 2.5 mg Route: Inhalation; jb4 23:04 Drug: Albuterol 2.5 mg Route: Inhalation; 4 23:29 Follow up: Response: No adverse reaction; Wheezing diminished jb4 Disposition: 03/12/19 22:55 Discharged to Home. Impression: Acute bronchitis. - Condition is Stable. - Discharge Instructions: Acute Bronchitis, Adult. - Prescriptions for Prednisone 20 mg Oral Tablet - take 1 tablet by ORAL route once daily for 5 days; 5 tablet. Albuterol Sulfate 90 mcg/actuation - inhale 1-2 puff by INHALATION route every 4-6 hours; 1 Inhaler. Guaifenesin AC 10- 100 mg/5 mL Oral Liquid - take 10 milliliter by ORAL route every 4 hours As needed; 240 milliliter. - Medication Reconciliation Form, Thank You Letter, Antibiotic Education, Prescription Opioid Use form. - Follow up: Private Physician; When: 2 - 3 days; Reason: Recheck today's complaints, Continuance of care, Re-evaluation by your physician. - Problem is new. - Symptoms have improved. Addendum: 03/14/2019 01:30 Co-signature as Attending Physician, Davin Amor MD. g s Signatures: Dispatcher [employer] EDMS Juliano Benson PA PA jr8 Jerad Rodriguez RN RN jb4 Davin Amor MD MD Corrections: (The following items were deleted from the chart) 03/12 23:29 22:55 03/12/2019 22:55 Discharged to Home. Impression: Acute bronchitis. Condition is jb4 Stable. Forms are Medication Reconciliation Form, Thank You Letter, Antibiotic Education, Prescription Opioid Use. Follow up: Private Physician; When: 2 - 3 days; Reason: Recheck today's complaints, Continuance of care, Re-evaluation by your physician. Problem is new. Symptoms have improved. jr8
[2019-03-12 23:34] VITALS: TEMP 99
[2019-03-12 23:36] VITALS: BP 123/86; O2SAT 96
--- NOTE | 2019-03-13 08:09 | RAD REPORT ---
EXAM DESCRIPTION: RAD - Chest Pa And Lat (2 Views) - 03/12/2019 9:55 pm CLINICAL HISTORY: Fever, cough, body aches COMPARISON: October 2018 TECHNIQUE: PA and lateral views of the chest were obtained. FINDINGS: The lungs are clear. Heart size is normal and central vasculature is within normal limit s. No pleural effusion or pneumothorax seen. No acute bony finding noted. No aortic abnormality. IMPRESSION: No acute cardiopulmonary process. No significant interval change.
== END 2019-03-12 23:29 | disposition home or self-care (01) ==
LOC: ER 20:37
DX: J20.9 Acute bronchitis, unspecified (principal); K21.9 Gastro-esophageal reflux disease without esophagitis; Z87.891 Personal history of nicotine dependence
CPT/HCPCS: 71046; 87070; 87081; 87804; 96372; 99284; J2930

== ENCOUNTER 2019-09-02 08:03 | Emergency (ER) | payer BC ==
--- NOTE | 2019-09-02 08:31 | EDPHYS ---
Physician Documentation [facility] Name: Grzegorz Hamilton Age: 39 yrs Sex: Male : 1980 Arrival Date: 09/02/2019 Time: 08:05 Bed 13 Private MD: ED Physician Aroldo Siddiqi HPI: 09/02 08:46 This 39 yrs old Male presents to ER via Ambulatory with complaints of Sore snw Throat. 08:46 The patient presents with sore throat. The patient describes throat pain as constant, snw raw. Onset: The symptoms/episode began/occurred suddenly, yesterday. Severity of symptoms: At their worst the symptoms were moderate. Associated signs and symptoms: Pertinent positives: vomiting. The patient has not experienced similar symptoms in the past. It is unknown whether or not the patient has recently seen a physician. Historical: - Allergies: 08:19 NKA; ph - Home Meds: 08:19 None [Active]; ph - PMHx: 08:19 Diverticulitis; GERD; ph - PSHx: 08:19 None; ph - Immunization history:: Adult Immunizations unknown. - Social history:: Smoking status: Patient/guardian denies using tobacco. - Ebola Screening: : No symptoms or risks identified at this time. ROS: 08:42 Constitutional: Negative for fever, chills, and weight loss, Eyes: Negative for injury, snw pain, redness, and discharge, Neck: Negative for injury, pain, and swelling, Cardiovascular: Negative for chest pain, palpitations, and edema, Respiratory: Negative for shortness of breath, cough, wheezing, and pleuritic chest pain, Abdomen/GI: Negative for abdominal pain, nausea, vomiting, diarrhea, and constipation, Back: Negative for injury and pain, : Negative for injury, bleeding, discharge, and swelling, MS/Extremity: Negative for injury and deformity, Skin: Negative for injury, rash, and discoloration, Neuro: Negative for headache, weakness, numbness, tingling, and seizure, Psych: Negative for depression, anxiety, suicide ideation, homicidal ideation, and hallucinations. 08:42 ENT: Positive for sinus congestion, sore throat. Exam: 08:41 Constitutional: This is a well developed, well nourished patient who is awake, alert, snw and in no acute distress. Head/Face: Normocephalic, atraumatic. Eyes: Pupils equal round and reactive to light, extra-ocular motions intact. Lids and lashes normal. Conjunctiva and sclera are non-icteric and not injected. Cornea within normal limits. Periorbital areas with no swelling, redness, or edema. Neck: Trachea midline, no thyromegaly or masses palpated, and no cervical lymphadenopathy. Supple, full range of motion without nuchal rigidity, or vertebral point tenderness. No Meningismus. Chest/axilla: Normal chest wall appearance and motion. Nontender with no deformity. No lesions are appreciated. Cardiovascular: Regular rate and rhythm with a normal S1 and S2. No gallops, murmurs, or rubs. Normal PMI, no JVD. No pulse deficits. Respiratory: Lungs have equal breath sounds bilaterally, clear to auscultation and percussion. No rales, rhonchi or wheezes noted. No increased work of breathing, no retractions or nasal flaring. Abdomen/GI: Soft, non-tender, with normal bowel sounds. No distension or tympany. No guarding or rebound. No evidence of tenderness throughout. Back: No spinal tenderness. No costovertebral tenderness. Full range of motion. Skin: Warm, dry with normal turgor. Normal color with no rashes, no lesions, and no evidence of cellulitis. MS/ Extremity: Pulses equal, no cyanosis. Neurovascular intact. Full, normal range of motion. Neuro: Awake and alert, GCS 15, oriented to person, place, time, and situation. Cranial nerves II-XII grossly intact. Motor strength 5/5 in all extremities. Sensory grossly intact. Cerebellar exam normal. Normal gait. 08:41 ENT: External ear(s): are unremarkable, Ear canal(s): are normal, Nose: is normal, Mouth: is normal, Posterior pharynx: Airway: normal, no evidence of obstruction, Uvula: edematous, erythema, Voice: is hoarse. Vital Signs: 08:17 BP 137 / 97; Pulse 74; Resp 20; Temp 97.4; Pulse Ox 94% on R/A; Weight 113.4 kg; Height ph 6 ft. (182.88 cm); Pain 8/10; 08:17 Body Mass Index 33.91 (113.40 kg, 182.88 cm) ph MDM: 08:07 Patient medically screened. snw 08:44 Data reviewed: vital signs, nurses notes. Data interpreted: Pulse oximetry: on room air snw is 94 %. Interpretation: acceptable. Counseling: I had a detailed discussion with the patient and/or guardian regarding: the historical points, exam findings, and any diagnostic results supporting the discharge/admit diagnosis. Response to treatment: There is no appreciated change of the patient's symptoms at this time. Special discussion: I have referred the patient to see his PCP for further evaluation of high blood pressure. Based on the history and exam findings, there is no indication for further emergent testing or inpatient evaluation. I discussed with the patient/guardian the need to see the ENT specialist for further evaluation of the symptoms. I discussed with the patient/guardian the need to see the primary care provider for further evaluation of the symptoms. 08:47 Special discussion: Encouraged to return to ED for worsening, choking, inability to snw swallow liquids. Pt voices understanding. 09/02 08:07 Order name: Strep; Complete Time: 08:29 snw 09/02 08:30 Order name: Throat Culture EDMS Administered Medications: 08:35 Drug: Decadron - Dexamethasone 10 mg {Note: andministeded PO.} Route: IVP; Site: Other; ph 08:46 Follow up: Response: No adverse reaction ph 08:35 Drug: Augmentin 875 mg Route: PO; ph 08:45 Follow up: Response: No adverse reaction ph Disposition: 15:08 Co-signature as Attending Physician, Aroldo Siddiqi MD I agree with the assessment and kdr plan of care. Disposition: 09/02/19 08:30 Discharged to Home. Impression: Uvulitis. - Condition is Stable. - Discharge Instructions: Uvulitis, Rehydration, Adult. - Prescriptions for Augmentin 875- 125 mg Oral Tablet - take 1 tablet by ORAL route every 12 hours for 10 days; 20 tablet. Prednisone 20 mg Oral Tablet - take 2 tablet by ORAL route once daily for 5 days; 10 tablet. Pepcid 20 mg Oral Tablet - take 1 tablet by ORAL route once daily; 20 tablet. - Work release form, Medication Reconciliation Form, Thank You Letter, Antibiotic Education, Prescription Opioid Use form. - Follow up: Private Physician; When: 2 - 3 days; Reason: Recheck today's complaints, Continuance of care, Re-evaluation by your physician. Follow up: Emergency Department; When: As needed; Reason: Worsening of condition. Signatures: Dispatcher [employer] Aroldo Momin MD MD [facility] Adriana Campos, CORRECTIVE AND MANUAL ARTS THERAPIST-C CORRECTIVE AND MANUAL ARTS THERAPIST-Csnw Maria Luz Higgins, RN RN ph Corrections: (The following items were deleted from the chart) 08:47 08:30 09/02/2019 08:30 Discharged to Home. Impression: Uvulitis. Condition is Stable. ph Forms are Medication Reconciliation Form, Thank You Letter, Antibiotic Education, Prescription Opioid Use. Follow up: Private Physician; When: 2 - 3 days; Reason: Recheck today's complaints, Continuance of care, Re-evaluation by your physician. Follow up: Emergency Department; When: As needed; Reason: Worsening of condition. snw
--- NOTE | 2019-09-02 08:31 | ER ---
Nurse's Notes [facility] Name: Grzegorz Hamilton Age: 39 yrs Sex: Male : 1980 Arrival Date: 09/02/2019 Time: 08:05 Bed 13 Private MD: Diagnosis: Uvulitis Presentation: 09/02 08:14 Presenting complaint: Patient states: sore throat with difficulty breathing since last ph light at bedtime, patient states, "I feel like its the hangie-gus thing", denies fever, cough, N/V. Transition of care: patient was not received from another setting of care. Onset of symptoms was September 02, 2019. Risk Assessment: Do you want to hurt yourself or someone else? Patient reports no desire to harm self or others. Initial Sepsis Screen: Does the patient meet any 2 criteria? No. Patient's initial sepsis screen is negative. Does the patient have a suspected source of infection? No. Patient's initial sepsis screen is negative. Care prior to arrival: None. 08:14 Method Of Arrival: Ambulatory ph 08:14 Acuity: WESLEY 4 ph Triage Assessment: 08:20 General: Appears in no apparent distress. comfortable, Behavior is calm, cooperative. ph Pain: Complains of pain in uvula Pain does not radiate. Pain currently is 8 out of 10 on a pain scale. Pain began Last night. EENT: Throat is reddened Uvula noted to be red and swollen . Reports difficulty swallowing Denies nasal congestion, nasal discharge. Neuro: Level of Consciousness is awake, alert, obeys commands, Oriented to person, place, time, situation. Cardiovascular: Capillary refill < 3 seconds Patient's skin is warm and dry. Respiratory: Reports shortness of breath Airway is patent Respiratory effort is even, unlabored, Respiratory pattern is regular, symmetrical, Denies cough. GI: No signs and/or symptoms were reported involving the gastrointestinal system. Derm: Skin is intact, is healthy with good turgor, Skin is pink, warm \\T\\ dry. Musculoskeletal: Circulation, motion, and sensation intact. Historical: - Allergies: 08:19 NKA; ph - Home Meds: 08:19 None [Active]; ph - PMHx: 08:19 Diverticulitis; GERD; ph - PSHx: 08:19 None; ph - Immunization history:: Adult Immunizations unknown. - Social history:: Smoking status: Patient/guardian denies using tobacco. - Ebola Screening: : No symptoms or risks identified at this time. Screenin:25 Abuse screen: Denies threats or abuse. Denies injuries from another. Nutritional ph screening: No deficits noted. Tuberculosis screening: No symptoms or risk factors identified. Fall Risk None identified. Assessment: 08:26 General: No change from previous assessment see triage note. ph Vital Signs: 08:17 BP 137 / 97; Pulse 74; Resp 20; Temp 97.4; Pulse Ox 94% on R/A; Weight 113.4 kg; Height ph 6 ft. (182.88 cm); Pain 8/10; 08:17 Body Mass Index 33.91 (113.40 kg, 182.88 cm) ph ED Course: 08:05 Patient arrived in ED. mr 08:06 Adri[facility] Campos [facility]C [facility]. snw 08:06 Aroldo Siddiqi MD is Attending Physician. snw 08:13 Maria Luz Higgins RN is Primary Nurse. ph 08:16 Triage completed. ph 08:19 Arm band placed on Patient placed in an exam room, on a stretcher, on pulse oximetry. ph 08:25 Patient has correct armband on for positive identification. Bed in low position. Call ph light in reach. Pulse ox on. NIBP on. Door closed. Noise minimized. 08:46 No provider procedures requiring assistance completed. Patient did not have IV access ph during this emergency room visit. Administered Medications: 08:35 Drug: Decadron - Dexamethasone 10 mg {Note: andministeded PO.} Route: IVP; Site: Other; ph 08:46 Follow up: Response: No adverse reaction ph 08:35 Drug: Augmentin 875 mg Route: PO; ph 08:45 Follow up: Response: No adverse reaction ph Outcome: 08:30 Discharge ordered by . snw 08:46 Discharged to home ambulatory. ph 08:46 Condition: good 08:46 Discharge instructions given to patient, Instructed on discharge instructions, follow up and referral plans. medication usage, Demonstrated understanding of instructions, follow-up care, medications, Prescriptions given X 3. 08:47 Patient left the ED. ph Signatures: Adriana Campos FNP-C FNP-Csnw Cally Abbott, Maria Luz, RN RN ph
[2019-09-02] MEDS ORDERED: dexAMETHasone 10 MG/ML VIAL ONE (08:32)
[2019-09-02] MEDS ORDERED: AMOX/K CLAV 875 MG TAB ONE (08:32)
[2019-09-02 08:52] VITALS: BP 137/97; TEMP 97.4; O2SAT 94
== END 2019-09-02 08:47 | disposition home or self-care (01) ==
LOC: ER 08:03
DX: K12.2 Cellulitis and abscess of mouth (principal)
CPT/HCPCS: 87070; 87081; 96374; 99283; J1100

== ENCOUNTER 2019-12-04 09:20 | Emergency (ER) | payer BC ==
[2019-12-04] MEDS ORDERED: KETOROLAC 30 MG/ML INJ ONE (09:49)
[2019-12-04] MEDS ORDERED: DIAZEPAM 5 MG TABLET ONE (09:49)
--- NOTE | 2019-12-04 10:56 | RAD REPORT ---
EXAM DESCRIPTION: RAD - Lumbar Spine 3 Views - 12/04/2019 10:22 am CLINICAL HISTORY: Back pain FINDINGS: The alignment of the lumbar spine is satisfactory. No fracture or dislocation is seen. Mild to moderate spondylosis involves L2-3 consisting disc space narrowing and osteophytes
--- NOTE | 2019-12-04 11:00 | ER ---
Nurse's Notes [facility] Name: Grzegorz Hamilton Age: 39 yrs Sex: Male : 1980 Arrival Date: 12/04/2019 Time: 09:24 Bed 8 Private MD: Diagnosis: Low back pain;Radiculopathy, lumbar region Presentation: 12/04 09:32 Presenting complaint: Patient states: was running and fell last night, c/o right low iw back pain since then, has pain when tries to life right leg. Transition of care: patient was not received from another setting of care. Onset of symptoms was December 03, 2019. Risk Assessment: Do you want to hurt yourself or someone else? Patient reports no desire to harm self or others. Initial Sepsis Screen: Does the patient meet any 2 criteria? No. Patient's initial sepsis screen is negative. Does the patient have a suspected source of infection? No. Patient's initial sepsis screen is negative. Care prior to arrival: None. 09:32 Method Of Arrival: Ambulatory iw 09:32 Acuity: WESLEY 4 iw Historical: - Allergies: 09:33 NKA; iw - Home Meds: :33 None [Active]; iw - PMHx: 09:33 Diverticulitis; GERD; iw - PSHx: 09:33 None; iw - Immunization history:: Adult Immunizations not up to date. - Social history:: Smoking status: Patient/guardian denies using tobacco. - Ebola Screening: : Patient negative for fever greater than or equal to 101.5 degrees Fahrenheit, and additional compatible Ebola Virus Disease symptoms Patient denies exposure to infectious person Patient denies travel to an Ebola-affected area in the 21 days before illness onset No symptoms or risks identified at this time. Screenin:50 Abuse screen: Denies threats or abuse. Denies injuries from another. Nutritional sv screening: No deficits noted. Tuberculosis screening: No symptoms or risk factors identified. Fall Risk None identified. Assessment: 09:50 General: Appears in no apparent distress. uncomfortable, well developed, Behavior is sv calm, cooperative, appropriate for age. Pain: Complains of pain in right gluteus stefan and low back area Pain currently is 10 out of 10 on a pain scale. Pain began 1 day ago. Is continuous, Aggravated by increased activity, repositioning. Neuro: Level of Consciousness is awake, alert, obeys commands, Oriented to person, place, time, situation, Moves all extremities. Full function. Respiratory: Airway is patent Respiratory effort is even, unlabored, Respiratory pattern is regular, symmetrical. Derm: Skin is pink, warm \T\ dry. 11:30 Reassessment: Patient appears in no apparent distress at this time. Patient and/or sv family updated on plan of care and expected duration. Pain level reassessed. Patient is alert, oriented x 3, equal unlabored respirations, skin warm/dry/pink. Patient states symptoms have improved. Vital Signs: 09:33 BP 114 / 82; Pulse 103; Resp 16; Temp 97.9; Pulse Ox 98% on R/A; Weight 104.33 kg; iw Height 6 ft. 0 in. (182.88 cm); Pain 1010; 09:33 Body Mass Index 31.19 (104.33 kg, 182.88 cm) iw ED Course: 09:24 Patient arrived in ED. mr 09:32 Triage completed. iw 09:35 Arm band placed on. sv 09:36 Adriana Campos FNP-C is PHCP. snw 09:36 Inocencio Brown MD is Attending Physician. snw 09:45 Karrie Sheets, MAREK is Primary Nurse. sv 09:50 Patient has correct armband on for positive identification. Bed in low position. Call sv light in reach. Side rails up X2. Adult w/ patient. Pulse ox on. NIBP on. Door closed. Head of bed elevated. 10:22 Lumbar Spine (3 Views) XRAY In Process Unspecified. EDMS 11:30 No provider procedures requiring assistance completed. Patient did not have IV access sv during this emergency room visit. Administered Medications: 09:50 Drug: TORadol 30 mg Route: IM; Site: left deltoid; sv 10:30 Follow up: Response: No adverse reaction sv 09:50 Drug: Valium 5 mg Route: PO; sv 10:30 Follow up: Response: No adverse reaction sv Outcome: 11:00 Discharge ordered by . snw 11:30 Patient left the ED. sv 11:30 Discharged to home ambulatory, with family. sv 11:30 Condition: stable 11:30 Discharge instructions given to patient, Instructed on discharge instructions, follow up and referral plans. medication usage, Demonstrated understanding of instructions, follow-up care, medications, Prescriptions given X 2. Signatures: Dispatcher [employer] Karrie Romero, Adriana Marrero RN, PACKING MACHINE FEEDER-C PACKING MACHINE FEEDER-Kevinw Cally Abbott Irene, RN RN iw
--- NOTE | 2019-12-04 11:00 | EDPHYS ---
Physician Documentation [facility] Name: Grzegorz Hamilton Age: 39 yrs Sex: Male : 1980 Arrival Date: 12/04/2019 Time: 09:24 Bed 8 Private MD: ED Physician Inocencio Brown HPI: 12/04 11:13 This 39 yrs old Male presents to ER via Ambulatory with complaints of Back snw Pain. 11:13 The patient presents with pain that is acute, and contusion, and an injury. The snw symptoms are located in the low back. Onset: The symptoms/episode began/occurred acutely. The pain radiates to the right gluteus stefan. Associated signs and symptoms: Pertinent positives: none. The problem was sustained during a fall, while running. Modifying factors: The patient symptoms are alleviated by nothing. Severity of symptoms: At their worst the symptoms were moderate. The patient has not experienced similar symptoms in the past. It is unknown whether or not the patient has recently seen a physician. Historical: - Allergies: :33 NKA; iw - Home Meds: : None [Active]; iw - PMHx: :33 Diverticulitis; GERD; iw - PSHx: :33 None; iw - Immunization history:: Adult Immunizations not up to date. - Social history:: Smoking status: Patient/guardian denies using tobacco. - Ebola Screening: : Patient negative for fever greater than or equal to 101.5 degrees Fahrenheit, and additional compatible Ebola Virus Disease symptoms Patient denies exposure to infectious person Patient denies travel to an Ebola-affected area in the 21 days before illness onset No symptoms or risks identified at this time. ROS: 11:12 Constitutional: Negative for fever, chills, and weight loss, Eyes: Negative for injury, snw pain, redness, and discharge, ENT: Negative for injury, pain, and discharge, Neck: Negative for injury, pain, and swelling, Cardiovascular: Negative for chest pain, palpitations, and edema, Respiratory: Negative for shortness of breath, cough, wheezing, and pleuritic chest pain, Abdomen/GI: Negative for abdominal pain, nausea, vomiting, diarrhea, and constipation, : Negative for injury, bleeding, discharge, and swelling, MS/Extremity: Negative for injury and deformity, Skin: Negative for injury, rash, and discoloration, Neuro: Negative for headache, weakness, numbness, tingling, and seizure, Psych: Negative for depression, anxiety, suicide ideation, homicidal ideation, and hallucinations. 11:12 Back: Positive for decreased range of motion, pain with movement, radiated pain, of the low back area, radiates down posterior right buttock, right leg. Exam: 11:12 Constitutional: This is a well developed, well nourished patient who is awake, alert, snw and in no acute distress. Head/Face: Normocephalic, atraumatic. Eyes: Pupils equal round and reactive to light, extra-ocular motions intact. Lids and lashes normal. Conjunctiva and sclera are non-icteric and not injected. Cornea within normal limits. Periorbital areas with no swelling, redness, or edema. ENT: Nares patent. No nasal discharge, no septal abnormalities noted. Tympanic membranes are normal and external auditory canals are clear. Oropharynx with no redness, swelling, or masses, exudates, or evidence of obstruction, uvula midline. Mucous membranes moist. Neck: Trachea midline, no thyromegaly or masses palpated, and no cervical lymphadenopathy. Supple, full range of motion without nuchal rigidity, or vertebral point tenderness. No Meningismus. Chest/axilla: Normal chest wall appearance and motion. Nontender with no deformity. No lesions are appreciated. Cardiovascular: Regular rate and rhythm with a normal S1 and S2. No gallops, murmurs, or rubs. Normal PMI, no JVD. No pulse deficits. Respiratory: Lungs have equal breath sounds bilaterally, clear to auscultation and percussion. No rales, rhonchi or wheezes noted. No increased work of breathing, no retractions or nasal flaring. Abdomen/GI: Soft, non-tender, with normal bowel sounds. No distension or tympany. No guarding or rebound. No evidence of tenderness throughout. Back: No spinal tenderness. No costovertebral tenderness. Full range of motion. Skin: Warm, dry with normal turgor. Normal color with no rashes, no lesions, and no evidence of cellulitis. MS/ Extremity: Pulses equal, no cyanosis. Neurovascular intact. Full, normal range of motion. Neuro: Awake and alert, GCS 15, oriented to person, place, time, and situation. Cranial nerves II-XII grossly intact. Motor strength 5/5 in all extremities. Sensory grossly intact. Cerebellar exam normal. Normal gait. Psych: Awake, alert, with orientation to person, place and time. Behavior, mood, and affect are within normal limits. Vital Signs: 09:33 BP 114 / 82; Pulse 103; Resp 16; Temp 97.9; Pulse Ox 98% on R/A; Weight 104.33 kg; iw Height 6 ft. 0 in. (182.88 cm); Pain 10; 09:33 Body Mass Index 31.19 (104.33 kg, 182.88 cm) iw MDM: 09:37 Patient medically screened. snw 11:11 Data reviewed: vital signs, nurses notes. Data interpreted: Pulse oximetry: on room air snw is 98 %. Interpretation: normal. Counseling: I had a detailed discussion with the patient and/or guardian regarding: the historical points, exam findings, and any diagnostic results supporting the discharge/admit diagnosis, the presence of at least one elevated blood pressure reading (>120/80) during this emergency department visit, radiology results, the need for outpatient follow up, to return to the emergency department if symptoms worsen or persist or if there are any questions or concerns that arise at home. Special discussion: I have referred the patient to see his PCP for further evaluation of high blood pressure. Based on the history and exam findings, there is no indication for further emergent testing or inpatient evaluation. I discussed with the patient/guardian the need to see the primary care provider for further evaluation of the symptoms. 12/04 09:37 Order name: Lumbar Spine (3 Views) XRAY; Complete Time: 10:58 snw Administered Medications: 09:50 Drug: TORadol 30 mg Route: IM; Site: left deltoid; sv 10:30 Follow up: Response: No adverse reaction sv 09:50 Drug: Valium 5 mg Route: PO; sv 10:30 Follow up: Response: No adverse reaction sv Disposition: 17:21 Co-signature as Attending Physician, Inocencio Brown MD. rn Disposition: 12/04/19 11:00 Discharged to Home. Impression: Low back pain, Radiculopathy, lumbar region. - Condition is Stable. - Discharge Instructions: Back Pain, Adult, Lumbosacral Radiculopathy, Musculoskeletal Pain, Back Injury Prevention, [id number], Cryotherapy, Heat Therapy. - Prescriptions for Mobic 7.5 mg Oral Tablet - take 1 tablet by ORAL route once daily take with food; 20 tablet. orphenadrine citrate 100 mg Oral Tablet Sustained Release - take 1 tablet by ORAL route 2 times per day As needed; 20 tablet. - Work release form, Medication Reconciliation Form, Thank You Letter, Antibiotic Education, Prescription Opioid Use form. - Follow up: Emergency Department; When: As needed; Reason: Worsening of condition. Follow up: Private Physician; When: 2 - 3 days; Reason: Recheck today's complaints, Continuance of care, Re-evaluation by your physician. Signatures: Dispatcher [employer] Karrie Romero RN RN Adriana Gonzalez, JEANETTE-C PIPING BLOCKER-Karlene Bazzi RN RN iw Nieto, Roman, MD MD internet salesperson: (The following items were deleted from the chart) 11:30 11:00 12/04/2019 11:00 Discharged to Home. Impression: Low back pain; Radiculopathy, sv lumbar region. Condition is Stable. Forms are Medication Reconciliation Form, Thank You Letter, Antibiotic Education, Prescription Opioid Use. Follow up: Emergency Department; When: As needed; Reason: Worsening of condition. Follow up: Private Physician; When: 2 - 3 days; Reason: Recheck today's complaints, Continuance of care, Re-evaluation by your physician. snw
[2019-12-04 11:39] VITALS: BP 114/82; TEMP 97.9; O2SAT 98
== END 2019-12-04 11:30 | disposition home or self-care (01) ==
LOC: ER 09:20
DX: M54.16 Radiculopathy, lumbar region (principal)
CPT/HCPCS: 72100; 96372; 99284

== ENCOUNTER 2021-03-02 19:20 | Emergency (ER) | payer BC ==
[2021-03-02 21:24] LABS: RBC Red Blood Cell Count 4.93 M/uL (4.33-5.43)
[2021-03-02 21:26] LABS: Basophils % 0.3 % (0-1.3); Hematocrit 41.3 % (39.6-49.0); Lymphocytes % 18.5 % (15.3-44.8); MPV 9.5 fL (7.6-11.3)
[2021-03-02] MEDS ORDERED: ONDANSETRON 4 MG/2 ML VIAL ONE (21:27)
[2021-03-02] MEDS ORDERED: NA CHLORIDE 0.9% 1,000 ML ONE (21:27)
[2021-03-02] MEDS ORDERED: ACETAMINOPHEN 500 MG TAB ONE (21:35)
[2021-03-02 21:38] LABS: Albumin 3.4 g/dL (3.4-5.0); Bilirubin Direct 0.3 mg/dL (0-0.2); Potassium 3.6 mmol/L (3.5-5.1); Protein, Total 7.6 g/dL (6.4-8.2)
[2021-03-02 23:14] LABS: Urine Blood Negative (Negative); Urine Glucose Negative (Negative); Urine Protein 1+ (Negative); Urine pH 6.5 (5.0-7.0)
--- NOTE | 2021-03-02 23:18 | EDPHYS ---
Physician Documentation [facility] Name: Grzegorz Hamilton Age: 40 yrs Sex: Male : 1980 Arrival Date: 03/02/2021 Time: 19:25 Bed 16 Private MD: ED Physician Kevin Rob HPI: 03/02 20:55 This 40 yrs old Male presents to ER via Ambulatory with complaints of cp Decreased Appetite. 20:55 Onset: The symptoms/episode began/occurred gradually. Associated signs and symptoms: cp Pertinent positives: cough, fever, Pertinent negatives: abdominal pain, chest pain, diarrhea, vomiting. Patient reports testing positive for COVID-19 last week. Historical: - Allergies: 20:14 NKA; bb - Home Meds: 20:14 None [Active]; bb - PMHx: 20:14 Diverticulitis; GERD; bb - PSHx: 20:14 None; bb - Immunization history:: Adult Immunizations up to date. - Social history:: Smoking status: Patient denies any tobacco usage or history of. ROS: 21:00 Constitutional: Positive for fever, poor PO intake. cp 21:00 Eyes: Negative for injury, pain, redness, and discharge. cp Exam: 21:05 Constitutional: The patient appears in no acute distress, alert, awake, cp non-diaphoretic, non-toxic, well developed, well nourished, febrile. 21:05 Head/Face: Normocephalic, atraumatic. cp 21:05 Eyes: Periorbital structures: appear normal, Conjunctiva: normal, no exudate, no injection, Sclera: no appreciated abnormality, Lids and lashes: appear normal, bilaterally. 21:05 ENT: External ear(s): are unremarkable, Nose: is normal, Mouth: Lips: dry, Oral mucosa: pink and intact, dry, Posterior pharynx: Airway: no evidence of obstruction, patent, erythema, is not appreciated, exudate, is not appreciated. 21:05 Neck: ROM/movement: is normal, is supple, without pain, no range of motions limitations, no meningismus. 21:05 Chest/axilla: Inspection: normal, Palpation: is normal, no crepitus, no tenderness. 21:05 Cardiovascular: Rate: normal, Rhythm: regular. 21:05 Respiratory: the patient does not display signs of respiratory distress, Respirations: normal, no use of accessory muscles, no retractions, labored breathing, is not present, Breath sounds: bronchial sounds, that are mild, are heard in the left posterior lower lobe, right posterior middle lobe and right posterior lower lobe, decreased breath sounds, are not appreciated, wheezing: is not appreciated. 21:05 Abdomen/GI: Inspection: abdomen appears normal, Bowel sounds: active, all quadrants, Palpation: soft, in all quadrants, mild abdominal tenderness, in the suprapubic area, rebound tenderness, is not appreciated, involuntary guarding, is not appreciated. 21:05 Back: pain, is absent, ROM is normal. 21:05 Skin: no rash present. 21:05 Neuro: Orientation: to person, place \T\ time. Mentation: is normal, Motor: moves all fours, strength is normal. Vital Signs: 20:11 BP 122 / 85; Pulse 95; Resp 16 S; Temp 100.5(O); Pulse Ox 97% on R/A; Weight 117.93 kg bb (R); Height 6 ft. 0 in. (182.88 cm) (R); Pain 0/10; 20:11 Body Mass Index 35.26 (117.93 kg, 182.88 cm) bb MDM: 20:43 Patient medically screened. cp 21:00 Differential diagnosis: bronchitis, pneumonia UTI, meningitis, dehydration, electrolyte cp abnormality. 23:15 Data reviewed: vital signs, nurses notes, lab test result(s), radiologic studies, plain cp films. 23:15 Test interpretation: by ED physician or midlevel provider: plain radiologic studies. cp Counseling: I had a detailed discussion with the patient and/or guardian regarding: the historical points, exam findings, and any diagnostic results supporting the discharge/admit diagnosis, lab results, radiology results, to return to the emergency department if symptoms worsen or persist or if there are any questions or concerns that arise at home. Response to treatment: the patient's symptoms have markedly improved after treatment, and as a result, I will discharge patient. 23:16 ED course: VSS. Patient appears non-toxic and with no signs of respiratory distress. cp Will discharge to home for continued monitoring. 03/02 20:44 Order name: Basic Metabolic Panel; Complete Time: 21:47 cp 03/02 20:44 Order name: CBC with Diff; Complete Time: 21:31 cp 03/02 21:31 Interpretation: Reviewed. cp 03/02 20:44 Order name: Hepatic Function; Complete Time: 21:47 cp 03/02 20:44 Order name: Lipase; Complete Time: 21:47 cp 03/02 20:44 Order name: CK cp 03/02 20:44 Order name: IV Saline Lock; Complete Time: 20:56 cp 03/02 20:45 Order name: Creatine Phosphokinase; Complete Time: 21:47 EDMS 03/02 21:49 Order name: XRAY Chest (1 view) cp 03/02 23:14 Order name: Urine Dipstick-Ancillary EDMS 03/02 20:44 Order name: Labs collected and sent; Complete Time: 20:56 cp 03/02 20:44 Order name: Urine Dipstick-Ancillary (obtain specimen); Complete Time: 23:13 cp Administered Medications: 21:13 Drug: NS 0.9% 1000 ml Route: IV; Rate: 1 bolus; Site: left antecubital; ll1 22:04 Follow up: Response: No adverse reaction; RASS: Alert and Calm (0); IV Status: ll1 Completed infusion; IV Intake: 1000ml 21:13 Drug: Zofran (Ondansetron) 4 mg Route: IVP; Site: left antecubital; ll1 21:48 Follow up: Response: No adverse reaction; RASS: Alert and Calm (0) ll1 21:15 Drug: Tylenol 1000 mg Route: PO; ll1 Disposition: 03/02/21 23:17 Discharged to Home. Impression: Other viral pneumonia. - Condition is Stable. - Discharge Instructions: Rehydration, Adult, COVID-19. - Prescriptions for Ibuprofen 800 mg Oral Tablet - take 1 tablet by ORAL route every 8 hours As needed take with food; 30 tablet. Tessalon Perles 100 mg Oral Capsule - take 2 capsule by ORAL route every 8 hours As needed; 20 capsule. Zithromax Z- Robert 250 mg Oral Tablet - take 1 tablet by ORAL route as directed for 5 days Day 1 - take two (2) tablets one time. Day 2, 3, 4 , 5 take one (1) tablet once daily.; 6 tablet. - Medication Reconciliation Form, Thank You Letter, Antibiotic Education, Prescription Opioid Use form. - Follow up: Private Physician; When: 2 - 3 days; Reason: Worsening of condition. - Problem is new. - Symptoms have improved. Addendum: 03/04/2021 00:46 Co-signature as Attending Physician, Kevin Rob MD. m a2 Signatures: Dispatcher [employer] EDNE Dang Schwarz, RN RN bb Stuart Givens PA PA cp Kevin Rob MD MD ma2 Jocelyne Rahman RN RN 1 Roger Mcdaniel RN RN sf Corrections: (The following items were deleted from the chart) 03/02 22:17 21:48 Abdomen Pelvis W Con+CT.RAD.BRZ ordered. EDNE EDNE 23:51 20:45 UA MICROSCOPIC+U.LAB.BRZ ordered. [facility] 03/03 00:26 03/02 23:17 03/02/2021 23:17 Discharged to Home. Impression: Other viral pneumonia. sf Condition is Stable. Forms are Medication Reconciliation Form, Thank You Letter, Antibiotic Education, Prescription Opioid Use. Follow up: Private Physician; When: 2 - 3 days; Reason: Worsening of condition. Problem is new. Symptoms have improved. cp
--- NOTE | 2021-03-02 23:18 | ER ---
Nurse's Notes [facility] Name: Grzegorz Hamilton Age: 40 yrs Sex: Male : 1980 Arrival Date: 03/02/2021 Time: 19:25 Bed 16 Private MD: Diagnosis: Other viral pneumonia Presentation: 03/02 20:11 Chief complaint: Patient states: he tested positive for COVID two weeks ago and still bb feels bad has no energy, a cough that won't go away, he's not eating, and his tongue looks like spoiled milk. Coronavirus screen: Client reports previous positive COVID test result. Date of collection: February 24, 2021. Ebola Screen: No symptoms or risks identified at this time. Initial Sepsis Screen: Does the patient meet any 2 criteria? No. Patient's initial sepsis screen is negative. Does the patient have a suspected source of infection? No. Patient's initial sepsis screen is negative. Risk Assessment: Do you want to hurt yourself or someone else? Patient reports no desire to harm self or others. Onset of symptoms was February 20, 2021. 20:11 Method Of Arrival: Ambulatory 20:11 Acuity: WESLEY 3 bb Triage Assessment: 20:14 General: Appears in no apparent distress. Behavior is calm, cooperative. Pain: Denies bb pain. Neuro: Level of Consciousness is awake, alert, obeys commands, Oriented to person, place, time, situation. Cardiovascular: No deficits noted. Respiratory: Respiratory effort is even, unlabored, Respiratory pattern is regular. GI: No signs and/or symptoms were reported involving the gastrointestinal system. Derm: Skin is pink, warm \T\ dry. Musculoskeletal: Circulation, motion, and sensation intact. Historical: - Allergies: 20:14 NKA; bb - Home Meds: 20:14 None [Active]; bb - PMHx: 20:14 Diverticulitis; GERD; bb - PSHx: 20:14 None; bb - Immunization history:: Adult Immunizations up to date. - Social history:: Smoking status: Patient denies any tobacco usage or history of. Vital Signs: 20:11 BP 122 / 85; Pulse 95; Resp 16 S; Temp 100.5(O); Pulse Ox 97% on R/A; Weight 117.93 kg bb (R); Height 6 ft. 0 in. (182.88 cm) (R); Pain 0/10; 20:11 Body Mass Index 35.26 (117.93 kg, 182.88 cm) bb ED Course: 19:25 Patient arrived in ED. cl3 20:14 Triage completed. bb 20:14 Arm band placed on. bb 20:22 Jocelyne Rahman RN is Primary Nurse. ll1 20:27 Stuart Givens PA is PHCP. cp 20:27 Kevin Rob MD is Attending Physician. cp 22:04 XRAY Chest (1 view) In Process Unspecified. EDMS 22:15 Primary Nurse role handed off by Jocelyne Rahman RN sf 22:15 Roger Mcdaniel, MAREK is Primary Nurse. sf 22:40 CK Sent. sf 03/03 00:26 No provider procedures requiring assistance completed. IV discontinued, intact, sf bleeding controlled, No redness/swelling at site. Pressure dressing applied. Administered Medications: 03/02 21:13 Drug: NS 0.9% 1000 ml Route: IV; Rate: 1 bolus; Site: left antecubital; ll1 22:04 Follow up: Response: No adverse reaction; RASS: Alert and Calm (0); IV Status: ll1 Completed infusion; IV Intake: 1000ml 21:13 Drug: Zofran (Ondansetron) 4 mg Route: IVP; Site: left antecubital; ll1 21:48 Follow up: Response: No adverse reaction; RASS: Alert and Calm (0) ll1 21:15 Drug: Tylenol 1000 mg Route: PO; ll1 Intake: 22:04 IV: 1000ml; Total: 1000ml. ll1 Outcome: 23:17 Discharge ordered by . cp 03/03 00:26 Discharged to home ambulatory. sf Condition: stable Discharge instructions given to patient, Instructed on discharge instructions, follow up and referral plans. medication usage, Demonstrated understanding of instructions, follow-up care, medications, Prescriptions given X 3. 00:26 Patient left the ED. sf Signatures: Dispatcher [employer] EDMS Dang Schwarz RN RN bb Stuart Givens PA PA cp Lewis, Charde cl3 Jocelyne Rahman RN RN ll1 Roger Mcdaniel RN RN sf Corrections: (The following items were deleted from the chart) 03/02 22:41 Primary Nurse role handed off by Jocelyne Rahman RN [facility] :41 Roger Mcdaniel RN is Primary Nurse. [facility] : Roger Mcdaniel RN is Primary Nurse. [facility]
[2021-03-03 02:40] VITALS: BP 122/85; TEMP 100.5; O2SAT 97
--- NOTE | 2021-03-03 07:57 | RAD REPORT ---
EXAM DESCRIPTION: [place] Single View03/02/2021 10:04 pm CLINICAL HISTORY: Cough COMPARISON: 2018 FINDINGS: The lungs appear clear of acute infiltrate. The heart is normal size IMPRESSION: No acute abnormalities displayed
== END 2021-03-03 00:26 | disposition home or self-care (01) ==
LOC: ER 19:20
DX: J12.89 Other viral pneumonia (principal); Z86.16 Personal history of COVID-19
CPT/HCPCS: 96361; 85025; 80048; 36415; 82550; 80076; 81003; 83690; 71045; 96374; 99284; J7030; J2405

== ENCOUNTER 2022-10-06 09:04 | Emergency (ER) | payer SELFPAY ==
--- OUTSIDE RECORDS SUMMARY | 2022-10-06 09:08 | XMS REPORT | Continuity of Care Document ---
:1980 Author Organization [facility] t Address [address] [place] [address] [address]. [address] [place] [address] Care Team Providers Name Role Phone Pcp, Patient Does Not Have A Primary Care Physician [id number] Sarita CAMPBELL Attending Clinician Unavailable Sarita Warren Attending Clinician Doctor Unassigned, [place] Attending Clinician Unavailable Rhona Zamorano Attending Clinician Payers Payer Name Policy Type Policy Number Effective Date Expiration Date S [facility] [id number] 2016 00:00:00 Problems Condition Condition Condition Status Onset Resolution Last Treating Co mments Source Name Details Category Date Date Treatment Clinician Date No known No known Disease Unive rs active active ity of problems problems [facility] Allergies, Adverse Reactions, Alerts Allergy Allergy Status Severity Reaction(s) Onset Inactive Treating Comm ents Source Name Type Date Date Clinician NO KNOWN Drug Active Univers ALLERGIE Class ity of S [facility] Social History Social Habit Start Date Stop Date Quantity Comments Source Exposure to 2022-09-18 2022-09-28 Not sure [facility] SARS-CoV-2 (event) 00:00:00 18:43:00 Medica l Branch Sex Assigned At [birth year] [facility] 00:00:00 00:00:00 Medical Branch Smoking Status Start Date Stop Date Source Tobacco smoking consumption Univ [facility] Medical unknown Branch Medications Ordered Filled Start Stop Current Ordering Indication Dosage Frequency Signature Comments Components Source Medication Medication Date Date Medication? Clinician (SIG) Name Name ondansetron 2020- No 4mg 4 mg, Slow Univers (ZOFRAN 4-17 -17 IV Push, ity of (PF)) 21:15: 21:02 ONCE, 1 [place] injection 4 00 :00 dose, Sat Med ical mg 03/08/21 at Branch 1615, NOEL NaCl 0.9% 2020- No 500mL at 999 Univ ers (NS) bolus 03-08-17 mL/hr, 500 it y of infusion 21:15: 21:30 mL, IV [place] 500 mL 00 :00 Infusion, Medical ONCE, 1 Branch dose, 03/08/21 at 1615, STAT ondansetron Yes [id number] 4mg Take 1 Univers (ZOFRAN 4-17 tablet by ity of ODT) 4 mg 00:00: mouth [place] disintegrat 00 every 8 Medic al ing tablet (eight) Branch hours as needed for Nausea and Vomiting (N/V). ondansetron Yes [id number] 4mg Take 1 Univers (ZOFRAN 4-17 tablet by ity of ODT) 4 mg 00:00: mouth [place] disintegrat 00 every 8 Medic al ing tablet (eight) Branch hours as needed for Nausea and Vomiting (N/V). ondansetron Yes [id number] 4mg Take 1 Univers (ZOFRAN 4-17 tablet by ity of ODT) 4 mg 00:00: mouth [place] disintegrat 00 every 8 Medic al ing tablet (eight) Branch hours as needed for Nausea and Vomiting (N/V). albuterol Yes 2.5mg Inhale 3 Uni vers (PROVENTIL) 8-24 mL every 4 it y of 2.5 mg /3 00:00: (four) [place] mL (0.083 00 hours. May Medi [place] %) also Branch nebulizer nebulize solution one extra every 6 hours. albuterol Yes 2{puff} Inhale 2 U nivers (VENTOLIN) 8-24 Puffs ity of 90 00:00: every 4 [place] mcg/actuati 00 (four) Medica l on inhaler hours as Branc h needed for Wheezing or Shortness of Breath. benzonatate Yes 100mg Take 1 Uni vers (TESSALON 8-24 capsule by [place]leep[place]leeps of [place]) 100 00:00: mouth 3 [place] as mg capsule 00 (three) Medica l times Branch daily as needed for Cough. albuterol 0 Yes 2.5mg Inhale 3 Uni vers (PROVENTIL) 8-24 mL every 4 it y of 2.5 mg /3 00:00: (four) [place] mL (0.083 00 hours. May Medi [place] %) also Branch nebulizer nebulize solution one extra every 6 hours. albuterol 0 Yes 2{puff} Inhale 2 U nivers (VENTOLIN) 8-24 Puffs ity of 90 00:00: every 4 [place] mcg/actuati 00 (four) Medica l on inhaler hours as Branc h needed for Wheezing or Shortness of Breath. benzonatate 0 Yes 100mg Take 1 Uni vers (TESSALON 8-24 capsule by [place]leeps of [place]) 100 00:00: mouth 3 [place] as mg capsule 00 (three) Medica l times Branch daily as needed for Cough. albuterol 0 Yes 2.5mg Inhale 3 Uni vers (PROVENTIL) 8-24 mL every 4 it y of 2.5 mg /3 00:00: (four) [place] mL (0.083 00 hours. May Medi [place] %) also Branch nebulizer nebulize solution one extra every 6 hours. albuterol 0 Yes 2{puff} Inhale 2 U nivers (VENTOLIN) 8-24 Puffs ity of 90 00:00: every 4 [place] mcg/actuati 00 (four) Medica l on inhaler hours as Branc h needed for Wheezing or Shortness of Breath. benzonatate 0 Yes 100mg Take 1 Uni vers (TESSALON 8-24 capsule by it[place]leeps of [place]) 100 00:00: mouth 3 [place] as mg capsule 00 (three) Medica l times Branch daily as needed for Cough. albuterol 0 Yes 2.5mg Inhale 3 Uni vers (PROVENTIL) 8-24 mL every 4 it y of 2.5 mg /3 00:00: (four) [place] mL (0.083 00 hours. May Medi [place] %) also Branch nebulizer nebulize solution one extra every 6 hours. albuterol 2015-0 Yes 2{puff} Inhale 2 U nivers (VENTOLIN) 8-24 Puffs ity of 90 00:00: every 4 [place] mcg/actuati 00 (four) Medica l on inhaler hours as Branc h needed for Wheezing or Shortness of Breath. benzonatate 2015-0 Yes 100mg Take 1 Uni vers (TESSALON 8-24 capsule by ity of DARREN) 100 00:00: mouth 3 [place] as mg capsule 00 (three) Medica l times Branch daily as needed for Cough. azithromyci 2016-0 Yes 250mg Take 1 Uni vers n 7-06 tablet by ity of (ZITHROMAX) 00:00: mouth [place] 250 mg 00 daily. Medical tablet Branch ranitidine 0 Yes 300mg Take 1 Univ ers (ZANTAC) 7-06 tablet by ity of 300 mg 00:00: mouth at [place] tablet 00 bedtime. Medical Branch benzonatate 0 Yes 200mg Take 1 Uni vers (TESSALON) 7-06 capsule by ity of 200 mg 00:00: mouth 3 [place] capsule 00 (three) Medical times Branch daily as needed for Cough. albuterol 0 Yes 2{puff} Inhale 2 U nivers (VENTOLIN) 7-06 Puffs ity of 90 00:00: every 4 [place] mcg/actuati 00 (four) Medica l on inhaler hours as Branc h needed for Wheezing or Shortness of Breath. ranitidine 0 Yes 300mg Take 1 Univ ers (ZANTAC) 7-06 tablet by ity of 300 mg 00:00: mouth at [place] tablet 00 bedtime. Medical Branch benzonatate 0 Yes 200mg Take 1 Uni vers (TESSALON) 7-06 capsule by ity of 200 mg 00:00: mouth 3 [place] capsule 00 (three) Medical times Branch daily as needed for Cough. albuterol 2015-0 Yes 2{puff} Inhale 2 U nivers (VENTOLIN) 7-06 Puffs ity of 90 00:00: every 4 [place] mcg/actuati 00 (four) Medica l on inhaler hours as Branc h needed for Wheezing or Shortness of Breath. ranitidine 2015-0 Yes 300mg Take 1 Univ ers (ZANTAC) 7-06 tablet by ity of 300 mg 00:00: mouth at [place] tablet 00 bedtime. Medical Branch benzonatate Yes 200mg Take 1 Uni vers (TESSALON) 7-06 capsule by ity of 200 mg 00:00: mouth 3 [place] capsule 00 (three) Medical times Branch daily as needed for Cough. albuterol Yes 2{puff} Inhale 2 U nivers (VENTOLIN) 7-06 Puffs ity of 90 00:00: every 4 [place] mcg/actuati 00 (four) Medica l on inhaler hours as Branc h needed for Wheezing or Shortness of Breath. ranitidine Yes 300mg Take 1 Univ ers (ZANTAC) 7-06 tablet by ity of 300 mg 00:00: mouth at [place] tablet 00 bedtime. Medical Branch benzonatate Yes 200mg Take 1 Uni vers (TESSALON) 7-06 capsule by ity of 200 mg 00:00: mouth 3 [place] capsule 00 (three) Medical times Branch daily as needed for Cough. albuterol Yes 2{puff} Inhale 2 U nivers (VENTOLIN) 7-06 Puffs ity of 90 00:00: every 4 [place] mcg/actuati 00 (four) Medica l on inhaler hours as Branc h needed for Wheezing or Shortness of Breath. azithromyci 2020- No 250mg Take 1 Un salazar n 7- 04-17 tablet by ity of (ZITHROMAX) 00:00: 00:00 mouth [place] 250 mg 00 :00 daily. Medical tablet Branch Vital Signs Vital Name Observation Time Observation Value Comments Source Systolic blood 2022-09-29 00:45:00 141 [facility] Diastolic blood 2022-09-29 00:45:00 94 mm[facility]Hg[facility] 2022-09-29 00:45:00 96 /min [facility] Body temperature 2022-09-29 00:45:00 37.06 Maria Fernanda [facility] Respiratory rate 2022-09-29 00:45:00 18 /min [facility] Body height 2022-09-29 00:45:00 182.9 cm [facility] [place] [facility] Body weight 2022-09-29 00:45:00 113.399 kg [facility] [place] [facility] BMI 2022-09-29 00:45:00 33.91 kg/m2 [facility] [place] [facility] Oxygen saturation in 2022-09-29 00:45:00 97 /min University of Arterial blood by [facility] georgie Pulse oximetry Branch Systolic blood 2021-03-08 23:00:00 127 mm[Hg] Univer sity of [facility] [place] [facility] Diastolic blood 2021-03-08 23:00:00 98 mm[Hg] Unive rsity of [facility] [place] [facility] Heart rate 2021-03-08 23:00:00 60 /min [facility] [place] [facility] Body temperature 2021-03-08 23:00:00 37.22 Maria Fernanda [facility] [place] [facility] Respiratory rate 2021-03-08 23:00:00 20 /min [facility] [place] [facility] Oxygen saturation in 2021-03-08 23:00:00 98 /min [facility] Pulse oximetry Branch Body weight 2021-03-08 19:35:00 113.399 kg [facility] [place] [facility] BMI 2021-03-08 19:35:00 33.91 kg/m2 [facility] [place] [facility] Systolic blood 2020-12-22 01:38:00 116 mm[Hg] Univer [facility] [place] [facility] Diastolic blood 2020-12-22 01:38:00 72 mm[Hg] Unive rsity [facility] [place] [facility] Heart rate 2020-12-22 01:36:00 92 /min [facility] [place] [facility] Body temperature 2020-12-22 01:36:00 37 Maria Fernanda [facility] [place] [facility] Respiratory rate 2020-12-22 01:36:00 18 /min [facility] [place] [facility] Body weight 2020-12-22 01:36:00 127.007 kg [facility] [place] [facility] BMI 2020-12-22 01:36:00 37.97 kg/m2 [facility] [place] [facility] Oxygen saturation in 2020-12-22 01:36:00 98 /min University of Arterial blood by [facility] ge[place]ie Pulse oximetry Branch Procedures Procedure Date / Time Performed Performing Clinician [facility] e NOTICE OF PRIVACY 2022-09-29 00:36:44 [facility] Unassigned, No [facility] CONSENT/REFUSAL FOR 2022-09-29 00:36:24 Doctor Unassigned, No [facility] [place] [facility] Name Medical Branch TREATMENT CONSENT/REFUSAL FOR 2021-03-08 19:12:59 Doctor Unassigned, No [facility] [place] [facility] AND Name Medical Branch TREATMENT NOTICE OF PRIVACY 2020-12-22 01:23:54 [facility]igned, No [facility] Encounters Start End Encounter Admission Attending Care Care Encounter Source Date/Time Date/Time Type Type Clinicians Facility Department ID 2022-09-28 2022-09-28 Emergency X Sarita CAMPBELL [facility] ERT [id number] Univers 18:46:00 20:10:00 ity of [facility] 2022-09-28 2022-09-28 Emergency Sarita Campbell [facility] [id number] Univers 18:46:00 20:10:00 Iris MATOS [id number] i ty of [place] [id number] [facility] [id number] [place] [id number] [place] 2022-09-28 2022-09-28 Orders Doctor VAUGHAN [id number] Univers 00:00:00 00:00:00 Only Unassigned, [place] [id number] ity of [place] [facility] [id number] [place] [id number] [facility] 009 Branch 2021-03-08 2021-03-08 [facility] [id number] Univers 14:36:00 18:04:00 Rhona Matos [id number] i ty of [place] [id number] [facility] [id number] [place] [id number] [place] 2021-03-08 2021-03-08 Emergency X [facility] ERT [id number] Univers 14:13:00 14:13:00 ity of [facility] 2020-12-21 2020-12-21 Emergency Tiffanie [facility] [id number] Univers 19:40:00 20:50:00 Rhona Matos [id number] [facility] [id number] [facility] [id number] [place] [id number] Branch 2020-12-21 2020-12-21 Emergency X [facility] ERT [id number] Univers 19:25:00 19:25:00 ity of [facility] Results This patient has no known results.
[2022-10-06] MEDS ORDERED: KETOROLAC 30 MG/ML INJ ONE (10:06)
--- NOTE | 2022-10-06 10:39 | RAD REPORT ---
EXAM DESCRIPTION: RAD - Lumbar Spine 3 Views - 10/06/2022 10:05 am CLINICAL HISTORY: PAIN Radiculopathy COMPARISON: Lumbar Spine 3 Views dated 12/04/2019; Lumbar Spine 3 Views dated 12/30/2018 FINDINGS: Vertebral body heights appear maintained. No compression fracture noted. Mild disc thinnin g lower lumbar spine with small endplate osteophytes. No spondylolysis or spondylolisthesis. IMPRESSION: Mild lower lumbar spondylosis.
--- NOTE | 2022-10-06 10:40 | RAD REPORT ---
EXAM DESCRIPTION: RAD - Pelvis - 10/06/2022 10:05 am CLINICAL HISTORY: PAIN COMPARISON: Pelvis dated 12/30/2018 FINDINGS: No fracture, dislocation or radiographic evidence of AVN. IMPRESSION: Negative study.
--- NOTE | 2022-10-06 10:51 | EDPHYS ---
Physician Documentation [facility] Name: Grzegorz Hamilton Age: 42 yrs Sex: Male : 1980 Arrival Date: 10/06/2022 Time: 09:08 Bed IW1 Private MD: ED Physician Inocencio Brown HPI: 10/06 09:45 This 42 yrs old Male presents to ER via Ambulatory with complaints of Back Pain. cp 09:45 The patient presents with pain that is acute. The symptoms are located in the right low cp back. 09:45 Onset: The symptoms/episode began/occurred yesterday. cp 09:45 The pain does not radiate. Associated signs and symptoms: Pertinent negatives: cp abdominal pain, constipation, dysuria, fever, hematuria, incontinence, numbness, urinary retention, weakness. The problem was sustained Patient reports while walking yesterday outside on wet surface after rain, slipped and lost his balance without falling to ground. Patient reports this caused the right low back pain. Historical: - Allergies: 09:36 NKA; jl7 - Home Meds: 09:36 None [Active]; jl7 - PMHx: 09:36 Diverticulitis; GERD; jl7 - PSHx: 09:36 None; jl7 - Immunization history:: Client reports having NOT received the Covid vaccine. - Social history:: Smoking status: Patient denies any tobacco usage or history of. ROS: 10:00 Eyes: Negative for injury, pain, redness, and discharge. cp 10:00 Constitutional: Negative for body aches, chills, fever, poor PO intake. 10:00 Neck: Negative for pain with movement, pain at rest, stiffness, tenderness. 10:00 Cardiovascular: Negative for chest pain. 10:00 Respiratory: Negative for cough, shortness of breath, wheezing. 10:00 Abdomen/GI: Negative for abdominal pain, nausea, vomiting, and diarrhea, constipation, bowel incontinence. 10:00 Back: Positive for pain at rest, pain with movement, of the right low back, Negative for decreased range of motion. 10:00 : Negative for urinary symptoms, flank pain, bladder incontinence, testicular pain 10:00 All other systems are negative. Exam: 10:05 Constitutional: The patient appears in no acute distress, alert, comfortable, cp non-toxic, well developed, well nourished. 10:05 Head/Face: Normocephalic, atraumatic. cp 10:05 Eyes: Periorbital structures: appear normal, Conjunctiva: normal, no exudate, no injection, Sclera: no appreciated abnormality, Lids and lashes: appear normal, bilaterally. 10:05 Neck: External neck: is normal, ROM/movement: is normal, is supple, without pain, no range of motions limitations. 10:05 Chest/axilla: Inspection: normal. 10:05 Cardiovascular: Rate: normal. 10:05 Respiratory: the patient does not display signs of respiratory distress, Respirations: normal, no use of accessory muscles, no retractions, Breath sounds: are clear throughout, no decreased breath sounds. 10:05 Abdomen/GI: Inspection: abdomen appears normal, Palpation: abdomen is soft and non-tender, in all quadrants. 10:05 Back: pain, that is moderate, of the right low back, vertebral tenderness, is not appreciated, Straight leg raises: of both lower extremities does not illicit pain. 10:05 Neuro: Orientation: to person, place \T\ time. Mentation: is normal, Motor: moves all fours, strength is normal, Sensation: is normal, Gait: is steady, at a normal pace, without difficulty, Deep tendon reflexes are 2+ (normal) in the right patellar, right Achilles, left patellar and left Achilles. Vital Signs: 09:35 BP 112 / 79; Pulse 82; Resp 17; Temp 98.7; Pulse Ox 97% on R/A; Weight 113.4 kg; Height jl7 6 ft. (182.88 cm); Pain 7/10; 09:35 Body Mass Index 33.91 (113.40 kg, 182.88 cm) jl7 MDM: 09:38 Patient medically screened. cp 10:50 Data reviewed: vital signs, nurses notes, radiologic studies, plain films. cp 10:50 Differential diagnosis: ruptured disc, sprain, vertebral fracture. Test interpretation: cp by ED physician or midlevel provider: plain radiologic studies. Counseling: I had a detailed discussion with the patient and/or guardian regarding: the historical points, exam findings, and any diagnostic results supporting the discharge/admit diagnosis, radiology results, the need for outpatient follow up, a family practitioner, to return to the emergency department if symptoms worsen or persist or if there are any questions or concerns that arise at home. Response to treatment: the patient's symptoms have markedly improved after treatment, and as a result, I will discharge patient. 10/06 09:40 Order name: XRAY Lumbar Spine (3 Views); Complete Time: 10:42 cp 10/06 09:40 Order name: XRAY Pelvis; Complete Time: 10:42 cp 10/06 10:42 Interpretation: Report reviewed. cp Administered Medications: 10:12 Drug: Ketorolac 30 mg Route: IM; Site: right deltoid; jl7 11:00 Follow up: Response: No adverse reaction; Pain is decreased jl7 Disposition: 13:06 Co-signature as Attending Physician, Inocencio Brown MD. rn Disposition Summary: 10/06/22 10:51 Discharge Ordered Location: Home cp Problem: new cp Symptoms: have improved cp Condition: Stable cp Diagnosis - Low back pain cp Followup: cp - With: Private Physician - When: 2 - 3 days - Reason: Recheck today's complaints Discharge Instructions: - Discharge Summary Sheet cp - Acute Back Pain, Adult cp - Heat Therapy cp - Back Exercises cp Forms: - Medication Reconciliation Form cp - Thank You Letter cp - Antibiotic Education cp - Prescription Opioid Use cp - Work release form jl7 Prescriptions: - Lidoderm 5 % Topical adhesive patch,medicated - apply 1 patch by TOPICAL route once daily; 10 patch; Refills: 0, Product cp Selection Permitted - Cyclobenzaprine 10 mg Oral Tablet - take 1 tablet by ORAL route every 8 hours As needed; 20 tablet; Refills: 0, cp Product Selection Permitted - Diclofenac Sodium 75 mg Oral Tablet Sustained Release - take 1 tablet by ORAL route 2 times per day; 30 tablet; Refills: 0, Product cp Selection Permitted Signatures: Dispatcher [employer] Inocencio Meehan MD MD rn Stuart Givens PA PA cp Leal, Jahala RN RN jl7
--- NOTE | 2022-10-06 10:51 | ER ---
Nurse's Notes [facility] Name: Grzegorz Hamilton Age: 42 yrs Sex: Male : 1980 Arrival Date: 10/06/2022 Time: 09:08 Bed IW1 Private MD: Diagnosis: Low back pain Presentation: 10/06 09:35 Chief complaint: Patient states: Slipped last night and felt something pop, did not jl7 fall, low back pain, radiates to upper right back. Coronavirus screen: At this time, the client does not indicate any symptoms associated with coronavirus-19. Ebola Screen: No symptoms or risks identified at this time. Initial Sepsis Screen: Does the patient meet any 2 criteria? No. Patient's initial sepsis screen is negative. Does the patient have a suspected source of infection? No. Patient's initial sepsis screen is negative. Risk Assessment: Do you want to hurt yourself or someone else? Patient reports no desire to harm self or others. Onset of symptoms was October 05, 2022. 09:35 Method Of Arrival: Ambulatory [facility] 09:35 Acuity: WESLEY 4 jl7 Triage Assessment: 09:36 General: Appears in no apparent distress. uncomfortable, Behavior is calm, cooperative, jl7 appropriate for age. Pain: Complains of pain in low back area Pain currently is 7 out of 10 on a pain scale. Musculoskeletal: Swelling absent. Historical: - Allergies: 09:36 NKA; jl7 - Home Meds: 09:36 None [Active]; jl7 - PMHx: 09:36 Diverticulitis; GERD; jl7 - PSHx: 09:36 None; jl7 - Immunization history:: Client reports having NOT received the Covid vaccine. - Social history:: Smoking status: Patient denies any tobacco usage or history of. Screenin:00 Abuse screen: Denies threats or abuse. Denies injuries from another. Nutritional jl7 screening: No deficits noted. Tuberculosis screening: No symptoms or risk factors identified. Fall Risk None identified. Assessment: 09:30 Reassessment: TOMMY Davidson in triage assessing pt. jl7 10:00 Reassessment: Pt to radiology. jl7 11:00 Reassessment: Pt reports decreased pain at this time, 03/31. jl7 Vital Signs: 09:35 BP 112 / 79; Pulse 82; Resp 17; Temp 98.7; Pulse Ox 97% on R/A; Weight 113.4 kg; Height jl7 6 ft. (182.88 cm); Pain 05/31; 09:35 Body Mass Index 33.91 (113.40 kg, 182.88 cm) jl7 ED Course: 09:08 Patient arrived in ED. rg4 09:14 Stuart Givens PA is PHCP. cp 09:14 Inocencio Brown MD is Attending Physician. cp 09:14 Magdaleno Morgan PA is PHCP. jm 09:36 Triage completed. jl7 09:36 Arm band placed on right wrist. jl7 10:00 Patient has correct armband on for positive identification. jl7 10:03 Delmer Odell, MAREK is Primary Nurse. jl7 10:06 XRAY Lumbar Spine (3 Views) In Process Unspecified. EDMS 10:06 XRAY Pelvis In Process Unspecified. EDMS 11:00 No provider procedures requiring assistance completed. Patient did not have IV access jl7 during this emergency room visit. Administered Medications: 10:12 Drug: Ketorolac 30 mg Route: IM; Site: right deltoid; jl7 11:00 Follow up: Response: No adverse reaction; Pain is decreased jl7 Medication: 11:00 VIS not applicable for this client. jl7 Outcome: 10:51 Discharge ordered by . cp 11:05 Patient left the ED. jl7 11:05 Discharged to home ambulatory. jl7 11:05 Condition: stable 11:05 Discharge instructions given to patient, Instructed on discharge instructions, follow up and referral plans. medication usage, Demonstrated understanding of instructions, follow-up care, medications, Prescriptions given X 3. Signatures: Dispatcher [employer] EDNH Magdaleno Morgan PA PA jmm Williams, Irene RN RN iw Stuart Givens PA PA cp Garcia, Rubi rg4 Delmer Odell RN RN jl7 Corrections: (The following items were deleted from the chart) 13:38 11:35 Patient left the ED. iw jl7
[2022-10-06 11:39] VITALS: BP 112/79; TEMP 98.7; O2SAT 97
== END 2022-10-06 11:35 | disposition home or self-care (01) ==
LOC: ER 09:04
DX: M54.50 Low back pain, unspecified (principal)
CPT/HCPCS: 72100; 72170; 96372; 99283

== ENCOUNTER 2023-10-05 14:03 | Emergency (ER) | payer SELFPAY ==
--- OUTSIDE RECORDS SUMMARY | 2023-10-05 14:06 | XMS REPORT | Continuity of Care Document ---
:1980 Author Organization [facility] t Address [address] [place] [address] [place] [id number] Care Team Providers Name Role Phone PCP, PATIENT DOES NOT HAVE A Primary Care Physician WESLEY Monge Attending Clinician Unavailable Wesley Da Silva MD Attending Clinician Doctor Unassigned, [place] Attending Clinician Unavailable Sarita CAMPBELL Attending Clinician Unavailable Sarita Warren Attending Clinician Rhona Zamorano Attending Clinician WESLEY DA SILVA Admitting Clinician Unavailable Payers Payer Name Policy Type Policy Number Effective Date Expiration Date S julianne [facility] [place] [id number] 2016 00:00:00 Problems Condition Condition Condition Status Onset Resolution Last Treating Co mments Source Name Details Category Date Date Treatment Clinician Date No known No known Disease Unive rs active active ity of problems problems [facility] Allergies, Adverse Reactions, Alerts Allergy Allergy Status Severity Reaction(s) Onset Inactive Treating Comm ents Source Name Type Date Date Clinician NO KNOWN Drug Active Univers ALLERGIE Class ity of [facility] Social History Social Habit Start Date Stop Date Quantity Comments Source [facility] 2022-09-18 2022-09-28 Not sure [facility] SARS-CoV-2 (event) 00:00:00 18:43:00 Medica l Branch Sex Ass[birth year] At [birth year] [facility] 00:00:00 00:00:00 Medical Branch Smoking Status Start Date Stop Date Source Tobacco smoking consumption [facility] Medical unknown Branch Medications Ordered Filled Start Stop Current Ordering Indication Dosage Frequency Signature Comments Components Source Medication Medication Date Date Medication? Clinician (SIG) Name Name ketorolac 2022-11 No 60mg 60 mg, Unive rs (TORADOL) 11-28 Intramuscu ity of injection 03:00: 02:48 [place] 60 mg 00 :00 NOW, 1 Medical dose, On Branch [facility] 09/27/23 at 2100, NOEL gabapentin 2022-11 No 300mg 300 mg, Un salazar (NEURONTIN) 11-28 Oral, ity of capsule 300 02:15: 02:47 ONCE, 1 [place] mg 00 :00 dose, On Medical [facility] Branch 09/27/23 at 2014, NOEL dexamethaso 2022-11 No 10mg 10 mg, Uni vers ne sod phos 11-28 Intramuscu i ty of PF 02:15: 02:48 lar, ONCE, [place] injection 00 :00 1 dose, On Medi [place] 10 mg [facility] 09/27/23 at 2014, 1 mL gabapentin 2022-11 Yes [id number] 100mg Take 1 Univers (NEURONTIN) 1-06 capsule by it y of 100 mg 00:00: mouth in [facility] 00 the Medical morning Branch and 1 capsule at noon and 1 capsule in the evening. diclofenac 2022-11 Yes [id number] 75mg Take 1 Univers 75 mg EC 1-06 tablet by ity of tablet 00:00: mouth in [place] 00 the morning Branch and 1 tablet in the evening. Take with meals. predniSONE 2022-11 Yes [id number] Take 2 Univers 20 mg 1-06 tablets PO ity of tablet 00:00: daily [place] 00 [facility] Branch acetaminoph 2022-11 Yes [id number] 650mg Take 1 Univers en (TYLENOL 1-06 tablet by ity of ARTHRITIS 00:00: mouth [place] PAIN) 650 00 every 8 Medical mg CR (eight) Branch tablet hours as needed for Pain. ondansetron No 4mg 4 mg, Slow Univers (ZOFRAN 4-17 04-17 IV Push, ity of (PF)) 21:15: 21:02 ONCE, 1 [place] injection 4 00 :00 dose, Sat Med ical mg 03/08/21 at Branch 1615, NOEL NaCl 0.9% No 500mL at 999 Univ ers (NS) bolus 17 04-17 mL/hr, 500 it y of infusion 21:15: 21:30 mL, IV [place] 500 mL 00 :00 Infusion, Medical ONCE, 1 Branch dose, 03/08/21 at 1615, STAT ondansetron Yes [id number] 4mg Take 1 Univers (ZOFRAN 4-17 tablet by ity of ODT) 4 mg 00:00: mouth [place] disintegrat 00 every 8 Medic al ing tablet (eight) Branch hours as needed for Nausea and Vomiting (N/V). ondansetron Yes [id number] 4mg Take 1 Univers (ZOFRAN 4-17 tablet by ity of ODT) 4 mg 00:00: mouth [place] disintegrat 00 every 8 Medic al ing tablet (eight) Branch hours as needed for Nausea and Vomiting (N/V). ondansetron Yes [id number] 4mg Take 1 Univers (ZOFRAN 4-17 tablet by ity of ODT) 4 mg 00:00: mouth [place] disintegrat 00 every 8 Medic al ing tablet (eight) Branch hours as needed for Nausea and Vomiting (N/V). ondansetron 0 Yes [id number] 4mg Take 1 Univers (ZOFRAN 4-17 tablet by ity of ODT) 4 mg 00:00: mouth [place] disintegrat 00 every 8 Medic al ing tablet (eight) Branch hours as needed for Nausea and Vomiting (N/V). ondansetron Yes [id number] 4mg Take 1 Univers (ZOFRAN 4-17 tablet [...] solution one extra every 6 hours. albuterol 2016-0 Yes 2{puff} Inhale 2 U nivers (VENTOLIN) 8-24 Puffs ity of 90 00:00: every 4 [place] mcg/actuati 00 (four) Medica l on inhaler hours as Branc h needed for Wheezing or Shortness of Breath. benzonatate 2016-0 Yes 100mg Take 1 Uni vers (TESSALON 8-24 capsule by itledy of [employer]) 100 00:00: mouth 3 [place] as mg capsule 00 (three) Medica l times Branch daily as needed for Cough. albuterol 2016-0 Yes 2.5mg Inhale 3 Uni vers (PROVENTIL) 8-24 mL every 4 it y of 2.5 mg /3 00:00: (four) [place] mL (0.083 00 hours. May Medi [place] %) also Branch nebulizer nebulize solution one extra every 6 hours. albuterol 2016-0 Yes 2{puff} Inhale 2 U nivers (VENTOLIN) 8-24 Puffs ity of 90 00:00: every 4 [place] mcg/actuati 00 (four) Medica l on inhaler hours as Branc h needed for Wheezing or Shortness of Breath. benzonatate 2016-0 Yes 100mg Take 1 Uni vers (TESSALON 8-24 capsule by ity of [employer]) 100 00:00: mouth 3 [place] as mg capsule 00 (three) Medica l times Branch daily as needed for Cough. albuterol 2016-0 Yes 2.5mg Inhale 3 Uni vers (PROVENTIL) 8-24 mL every 4 it y of 2.5 mg /3 00:00: (four) [place] mL (0.083 00 hours. May Medi [place] %) also Branch nebulizer nebulize solution one extra every 6 hours. albuterol 2016-0 Yes 2{puff} Inhale 2 U nivers (VENTOLIN) 8-24 Puffs ity of 90 00:00: every 4 [place] mcg/actuati 00 (four) Medica l on inhaler hours as Branc h needed for Wheezing or Shortness of Breath. benzonatate 2016-0 Yes 100mg Take 1 Uni vers (TESSALON 8-24 capsule by ity of [employer]) 100 00:00: mouth 3 [place] as mg capsule 00 (three) Medica l times Branch daily as needed for Cough. albuterol 2016-0 Yes 2.5mg Inhale 3 Uni vers (PROVENTIL) 8-24 mL every 4 it y of 2.5 mg /3 00:00: (four) [place] mL (0.083 00 hours. May Medi [place] %) also Branch nebulizer nebulize solution one extra every 6 hours. albuterol 2016-0 Yes 2{puff} Inhale 2 U nivers (VENTOLIN) 8-24 Puffs ity of 90 00:00: every 4 [place] mcg/actuati 00 (four) Medica l on inhaler hours as Branc h needed for Wheezing or Shortness of Breath. benzonatate 2016-0 Yes 100mg Take 1 Uni vers (TESSALON 8-24 capsule by mario SCVNGR DARREN) 100 00:00: mouth 3 [place] as mg capsule 00 (three) Medica l times Branch daily as needed for Cough. albuterol 2015-0 Yes 2.5mg Inhale 3 Uni vers (PROVENTIL) [...] for Wheezing or Shortness of Breath. benzonatate 2016-0 Yes 100mg Take 1 Uni vers (TESSALON 8-24 capsule by [place]) 100 00:00: mouth 3 [place] as mg capsule 00 (three) Medica l times Branch daily as needed for Cough. albuterol 2016-0 Yes 2.5mg Inhale 3 Uni vers (PROVENTIL) 8-24 mL every 4 it y of 2.5 mg /3 00:00: (four) [place] mL (0.083 00 hours. May Medi [place] %) also Branch nebulizer nebulize solution one extra every 6 hours. albuterol 2016-0 Yes 2{puff} Inhale 2 U nivers (VENTOLIN) 8-24 Puffs ity of 90 00:00: every 4 [place] mcg/actuati 00 (four) Medica l on inhaler hours as Branc h needed for Wheezing or Shortness of Breath. benzonatate 2015-0 Yes 100mg Take 1 Uni vers (TESSALON 8-24 capsule by ity of PERLES) 100 00:00: mouth 3 [place] as mg capsule 00 (three) Medica l times Branch daily as needed for Cough. albuterol 2015- Yes 2{puff} Inhale 2 U nivers (VENTOLIN) [...] for Wheezing or Shortness of Breath. azithromyci 2015-0 Yes 250mg Take 1 Uni vers n 7-06 tablet by ity of (ZITHROMAX) 00:00: mouth [place] 250 mg 00 daily. Medical tablet Branch ranitidine 2016-0 Yes 300mg Take 1 Univ ers (ZANTAC) 7-06 tablet by ity of 300 mg 00:00: mouth at [place] tablet 00 bedtime. Medical Branch ranitidine 2016-0 Yes 300mg Take 1 Univ ers (ZANTAC) 7-06 tablet by ity of 300 mg 00:00: mouth at [place] tablet 00 bedtime. Medical Branch benzonatate 2016-0 Yes 200mg Take 1 Uni vers (TESSALON) 7-06 capsule by ity of 200 mg 00:00: mouth 3 [place] capsule 00 (three) Medical times Branch daily as needed for Cough. albuterol 2016-0 Yes 2{puff} Inhale 2 U nivers (VENTOLIN) 7-06 Puffs ity of 90 00:00: every 4 [place] mcg/actuati 00 (four) Medica l on inhaler hours as Branc h needed for Wheezing or Shortness of Breath. benzonatate 2015-0 Yes 200mg Take 1 Uni vers (TESSALON) [...] [place] tablet 00 bedtime. Medical Branch benzonatate 2016-0 Yes 200mg Take 1 Uni vers (TESSALON) 7-06 capsule by ity of 200 mg 00:00: mouth 3 [place] capsule 00 (three) Medical times Branch daily as needed for Cough. albuterol 2016-0 Yes 2{puff} Inhale 2 U nivers (VENTOLIN) [...] Yes 200mg Take 1 Uni vers (TESSALON) 05-27 capsule by ity of 200 mg 00:00: mouth 3 [place] capsule 00 (three) Medical times Branch daily as needed for Cough. azithromyci 2020- No 250mg Take 1 Un salazar n 05-27 04-17 tablet by ity of (ZITHROMAX) 00:00: 00:00 [place] 250 mg 00 :00 daily. Medical tablet Branch Vital Signs Vital Name Observation Time Observation Value Comments Source Systolic blood 2023-09-28 02:07:00 142 mm[Hg] Univer sity of [facility] Diastolic blood 2023-09-28 02:07:00 94 mm[Hg] [facility] Heart rate 2023-09-28 02:07:00 96 /min [facility] Body temperature 2023-09-28 02:07:00 36.72 Maria Fernanda [facility] Respiratory rate 2023-09-28 02:07:00 16 /min [facility] Body height 2023-09-28 02:07:[address] [facility] Body weight 2023-09-28 02:07:[address] [facility] BMI 2023-09-28 02:07:00 34.31 kg/m2 [facility] Oxygen saturation in 2023-09-28 02:07:00 99 /min [facility] Arterial blood by [facility] Pulse oximetry Branch Systolic blood 2022-09-29 00:45:00 141 mm[Hg] Univer sity of [facility] Diastolic blood 2022-09-29 00:45:00 94 mm[Hg] Unive rsity of [facility] Heart rate 2022-09-29 00:45:00 96 /min [facility] Body temperature 2022-09-29 00:45:00 37.06 Maria Fernanda [facility] Respiratory rate 2022-09-29 00:45:00 18 /min [facility] Body height 2022-09-29 00:45:00 182.9 cm Universi ty [facility] [place] [facility] Body weight 2022-09-29 00:45:00 113.399 kg [facility]i ty [facility] [place] [facility] BMI 2022-09-29 00:45:00 33.91 kg/m2 Universi ty [facility] [place] [facility] Oxygen saturation in 2022-09-29 00:45:00 97 /min University of Arterial blood by [facility] [place] Pulse oximetry Branch Systolic blood 2021-03-08 23:00:00 127 mm[Hg] Univer sity of pressure [place] [facility] Diastolic blood 2021-03-08 23:00:00 98 mm[Hg] Unive rsity of pressure [place] [facility] Heart rate 2021-03-08 23:00:00 60 /min Universi ty of [place] [facility] Body temperature 2021-03-08 23:00:00 37.22 Maria Fernanda Univ ersity of [place] [facility] Respiratory rate 2021-03-08 23:00:00 20 /min Univ ersity of [place] [facility] Oxygen saturation in 2021-03-08 23:00:00 98 /min University of Arterial blood by [facility] Pulse oximetry Branch Body weight 2021-03-08 19:35:00 113.399 kg Universi ty [facility] [place] [facility] BMI 2021-03-08 19:35:00 33.91 kg/m2 [facility]i ty [facility] [place] [facility] Systolic blood 2020-12-22 01:38:00 116 mm[Hg] Univer sity of pressure [place] [facility] Diastolic blood 2020-12-22 01:38:00 72 mm[Hg] Unive rsity of pressure [place] [facility] Heart rate 2020-12-22 01:36:00 92 /min Universi ty [facility] [place] [facility] Body temperature 2020-12-22 01:36:00 37 Maria Fernanda Univ ersity of [place] [facility] Respiratory rate 2020-12-22 01:36:00 18 /min Univ ersity of [place] [facility] Body weight 2020-12-22 01:36:00 127.007 kg [facility]i ty [facility] [place] [facility] BMI 2020-12-22 01:36:00 37.97 kg/m2 Universi ty of [place] [facility] Oxygen saturation in 2020-12-22 01:36:00 98 /min University of Arterial blood by [facility] Pulse oximetry Branch Procedures Procedure Date / Time Performed Performing Clinician Sourc e XR LUMBAR SPINE 4 VW 2023-09-28 02:32:19 Wesley Da Silva [facility] CONSENT/REFUSAL FOR 2023-09-28 01:57:28 Doctor Unassigned, No Un iversity of [place] DIAGNOSIS AND Name Medical Branch TREATMENT NOTICE OF PRIVACY 2022-09-29 00:36:44 Doctor Unassigned, No Univ ersity of [facility] Medical Branch CONSENT/REFUSAL FOR 2022-09-29 00:36:24 Doctor Unassigned, No Un iversity of [place] DIAGNOSIS AND Name Medical Branch TREATMENT CONSENT/REFUSAL FOR 2021-03-08 19:12:59 Doctor Unassigned, No Un iversity of [place] DIAGNOSIS AND Name Medical Branch TREATMENT NOTICE OF PRIVACY 2020-12-22 01:23:54 Doctor Unassigned, No Univ ersity [facility] Encounters Start End Encounter Admission Attending Care Care Encounter Source Date/Time Date/Time Type Type Clinicians Facility Department ID 2023-09-27 2023-09-27 Emergency X AVINASH [facility] ERT [id number] Univers 20:21:00 21:57:00 WESLEY mario [facility] 2023-09-27 2023-09-27 Emergency Avinash [facility] [id number] Univers 20:21:00 21:57:00 Wesley MATOS [id number] i ty [facility] [id number] [facility] [id number] [facility] 084 Branch 2022-09-29 2022-09-29 Patient Doctor ALEXUS [id number] Univers 00:00:00 00:00:00 Secure Msg Unassigned, GUILLE [id number] ity of [place] [facility] [id number] [facility] [id number] [facility] 019 Branch 2022-09-28 2022-09-28 Emergency X Sarita CAMPBELL [facility] ERT [id number] Univers 18:46:00 20:10:00 ity of [facility] 2022-09-28 2022-09-28 Emergency Sarita Campbell [facility] [id number] Univers 18:46:00 20:10:00 Iris MATOS [id number] i ty of [place] [id number] [facility] [id number] [place] [id number] [place] 2022-09-28 2022-09-28 Orders Doctor ALEXUS [id number] Univers 00:00:00 00:00:00 Only Unassigned, GUILLE [id number] ity of [place] [facility] [id number] Marlon [id number] [facility] 009 Branch 2021-03-08 2021-03-08 Emergency Moreno, [facility] [id number] Univers 14:36:00 18:04:00 Rhona Matos [id number] i ty of [place] [id number] [facility] [id number] [address] 2021-03-08 2021-03-08 Emergency X [facility] ERT [id number] Univers 14:13:00 14:13:00 ity of [facility] 2020-12-21 2020-12-21 Emergency Moreno, [facility] [id number] Univers 19:40:00 20:50:00 Rhona Matos [id number] i ty of [place] [id number] [facility] [id number] [address] 2020-12-21 2020-12-21 Emergency X [facility] ERT [id number] Univers 19:25:00 19:25:00 ity of [facility] Results This patient has no known results.
[2023-10-05] MEDS ORDERED: TDAP (DIPHTH,PERTUSS(ACELL),TET VAC) 0.5 ML VIAL IMVAC ONE (14:33)
--- NOTE | 2023-10-05 15:34 | RAD REPORT ---
EXAM DESCRIPTION: RAD - Foot Left 3 View - 10/05/2023 2:45 pm CLINICAL HISTORY: r/o fb COMPARISON: No comparisons TECHNIQUE: Left foot, 3 views. FINDINGS: No fracture, dislocation or periosteal reaction. No air or foreign body in the soft tissues. IMPRESSION: Negative left foot radiographs.
--- NOTE | 2023-10-05 15:42 | EDPHYS ---
Physician Documentation [facility] [place] [place] Name: Grzegorz Hamilton Age: 43 yrs Sex: Male : 1980 Arrival Date: 10/05/2023 Time: 14:03 Bed 9 Private MD: ED Physician Bird Fam HPI: 10/05 15:44 This 43 yrs old Male presents to ER via Ambulatory with complaints of Foot Injury. kb 15:44 Patient is a 43-year-old male who stepped on something at work that went through his [place]ibu shoe and punctured his foot just prior to arrival. States he came in to make sure there is nothing inside of his foot.. Historical: - Allergies: 14:14 NKA; hb - Home Meds: 14:14 None [Active]; hb - PMHx: 14:14 Diverticulitis; GERD; hb - PSHx: 14:14 None; hb - Immunization history:: Adult Immunizations up to date, Last tetanus immunization: unknown. - Social history:: Smoking status: . ROS: 15:43 Constitutional: Negative for fever, chills, and weight loss, kb 15:43 Skin: Positive for puncture, swelling, of the ball of left foot, 15:43 All other systems are negative, Exam: 15:43 Constitutional: This is a well developed, well nourished patient who is awake, alert, kb and in no acute distress. Head/Face: Normocephalic, atraumatic. ENT: Moist Mucous membranes Cardiovascular: Regular rate Respiratory: Respirations even and unlabored. No increased work of breathing. Talking in full sentences MS/ Extremity: Pulses equal, no cyanosis. Neurovascular intact. Full, normal range of motion. Neuro: Awake and alert, GCS 15, oriented to person, place, time, and situation. Moves all extremities. Normal gait. 15:43 Skin: injury, puncture(s), that are superficial, of the ball of left foot, Vital Signs: 14:13 BP 135 / 82; Pulse 88; Resp 16; Temp 98.2(O); Pulse Ox 100% on R/A; Weight 99.79 kg; hb Height 5 ft. 10 in. ; Pain 6/10; 14:13 Body Mass Index 31.57 (99.79 kg, 177.8 cm) hb 14:13 Pain Scale: Adult hb MDM: 14:06 Patient medically screened. kb 15:43 Differential diagnosis: laceration, puncture, fracture, foreign body. Data reviewed: kb vital signs, nurses notes. Counseling: I had a detailed discussion with the patient and/or guardian regarding the historical points, exam findings, and any diagnostic results supporting the discharge/admit diagnosis, radiology results, the need for outpatient follow up, a family practitioner, to return to the emergency department if symptoms worsen or persist or if there are any questions or concerns that arise at home. 10/05 14:09 Order name: Foot Left 3 View XRAY; Complete Time: 15:35 cm10 Administered Medications: 14:23 Drug: Tetanus-Diphtheria Toxoid IM Adult 0.5 ml IM once; Provide Vaccine Information hb Statement (VIS). {Product Support Manager: Attainia; Exp: Sat Apr 14 2025; Lot #: [id number]; Series: 1 of 1; Patient Consent: Obtained; Date/Time: ; Source Name: Grzegorz Hamilton; Source Relationship: Self; Address Information: [address] [place] [address]; ; Education: Provided; VIS Presented Date: ; VIS Publication: Tetanus/Diphtheria (Td) Vaccine VIS 03/02/2017 (historic)} Route: IM; Site: left deltoid; 15:02 Follow up: Response: No adverse reaction hb Disposition Summary: 10/05/23 15:42 Discharge Ordered Notes: Location: Home kb Condition: Stable kb Diagnosis - Puncture wound without foreign body of foot kb Followup: kb - With: Emergency Department - When: As needed - Reason: Worsening of condition Followup: kb - With: Private Physician - When: 2 - 3 days - Reason: Recheck today's complaints, Continuance of care, Re-evaluation by your physician Discharge Instructions: - Discharge Summary Sheet kb - Puncture Wound, [id number] kb Forms: - Medication Reconciliation Form kb - Thank You Letter kb - Antibiotic Education kb - Prescription Opioid Use kb - Patient Portal Instructions kb - Leadership Thank You Letter kb Prescriptions: - Doxycycline Hyclate 100 mg Oral Tablet - take 1 tablet ORAL route every 12 hours; 20 tablet; Refills: 0, Product kb Selection Permitted Addendum: 10/06/2023 16:01 I was immediately available for consultation during this patient's visit. I did not e c2 personally see the patient or guide the patient's care.. Signatures: Dispatcher [employer] Maria Elena Kearns, JEANETTE-Tae GARZAP-Arlene Lomeli, RN RN Miladis Benjamin RN RN cm10 Bird Fam MD MD ec2 Corrections: (The following items were deleted from the chart) 10/05 15:50 15:44 Patient is a 43-year-old male who stepped on something at work that went through kb his shoe and punctured his foot. States he came in to make sure there is nothing inside of his foot.. kb
--- NOTE | 2023-10-05 15:42 | ER ---
Nurse's Notes [facility] Name: Grzegorz Hamilton Age: 43 yrs Sex: Male : 1980 Arrival Date: 10/05/2023 Time: 14:03 Bed 9 Private MD: Diagnosis: Puncture wound without foreign body of foot Presentation: 10/05 14:13 Chief complaint: Stepped on nail at work 2 days ago, went through shoe and into right hb foot, now c/o pain 6/10. Coronavirus screen: At this time, the client does not indicate any symptoms associated with coronavirus-19. Ebola Screen: No symptoms or risks identified at this time. Initial Sepsis Screen: Does the patient meet any 2 criteria? No. Patient's initial sepsis screen is negative. Does the patient have a suspected source of infection? No. Patient's initial sepsis screen is negative. Risk Assessment: Do you want to hurt yourself or someone else? Patient reports no desire to harm self or others. Onset of symptoms was October 03, 2023. 14:13 Method Of Arrival: Ambulatory 14:13 Acuity: WESLEY 4 hb Triage Assessment: 14:14 General: Appears in no apparent distress. Behavior is calm, cooperative. Pain: Pain hb currently is 6 out of 10 on a pain scale. Neuro: Level of Consciousness is awake, alert, obeys commands, Oriented to person, place, time, situation. Cardiovascular: Patient's skin is warm and dry. Respiratory: Respiratory effort is even, unlabored, Respiratory pattern is regular, symmetrical. Musculoskeletal: Reports left foot pain. Historical: - Allergies: 14:14 NKA; hb - Home Meds: 14:14 None [Active]; hb - PMHx: 14:14 Diverticulitis; GERD; hb - PSHx: 14:14 None; hb Historical Immunization: - Administered Vaccines 14:23 Tetanus-Diphtheria Toxoid IM Adult 0.5 ml hb Administrative Technician: Vivo; Exp: Sat Apr 14 2025; Lot #: [id number]; Series: 1 of 1; Patient Consent: Obtained; Date/Time: ; Source Name: Grzegorz Hamilton; Source Relationship: Self; Address Information: [address] [address]; ; Education: Provided; VIS Presented Date: ; VIS Publication: Tetanus/Diphtheria (Td) Vaccine VIS 03/02/2017 (historic) - Immunization history:: Adult Immunizations up to date, Last tetanus immunization: unknown. - Social history:: Smoking status: . Screenin:15 [facility] ED Fall Risk Assessment (Adult) Score/Fall Risk Level 0 - 2 = Low Risk hb Oriented to surroundings, Maintained a safe environment. Abuse screen: Denies threats or abuse. Denies injuries from another. Nutritional screening: No deficits noted. Tuberculosis screening: No symptoms or risk factors identified. Assessment: 14:15 General: See triage assessment . hb 15:29 Reassessment: Patient appears in no apparent distress at this time. Patient and/or hb family updated on plan of care and expected duration. Pain level reassessed. Patient is alert, oriented x 3, equal unlabored respirations, skin warm/dry/pink. Vital Signs: 14:13 BP 135 / 82; Pulse 88; Resp 16; Temp 98.2(O); Pulse Ox 100% on R/A; Weight 99.79 kg; hb Height 5 ft. 10 in. ; Pain 6/10; 14:13 Body Mass Index 31.57 (99.79 kg, 177.8 cm) hb 14:13 Pain Scale: Adult hb ED Course: 14:05 Patient arrived in ED. mg5 14:06 Maria Elena Bright FNP-C is [facility]. kb 14:06 Bird Fam MD is Attending Physician. kb 14:12 Arlene Zaragoza, MAREK is Primary Nurse. hb 14:14 Triage completed. hb 14:15 Patient has correct armband on for positive identification. Provided Education on: . hb 14:15 No provider procedures requiring assistance completed. Patient did not have IV access hb during this emergency room visit. 14:47 Foot Left 3 View XRAY In Process Unspecified. EDMS Administered Medications: 14:23 Drug: Tetanus-Diphtheria Toxoid IM Adult 0.5 ml IM once; Provide Vaccine Information hb Statement (VIS). {Administrative Technician: Vivo; Exp: Sat Apr 14 2025; Lot #: [id number]; Series: 1 of 1; Patient Consent: Obtained; Date/Time: ; Source Name: Grzegorz Hamilton; Source Relationship: Self; Address Information: [address], [place] [address]; ; Education: Provided; VIS Presented Date: ; VIS Publication: Tetanus/Diphtheria (Td) Vaccine VIS 03/02/2017 (historic)} Route: IM; Site: left deltoid; 15:02 Follow up: Response: No adverse reaction hb Medication: 14:15 Vaccine Information Statement (VIS) provided today. Questions and/or concerns hb addressed. VIS edition date: October 05, 2023. Outcome: 15:42 Discharge ordered by MD. kb 15:51 Discharged to home ambulatory, hb 15:51 Condition: stable 15:51 Discharge instructions given to patient, Instructed on discharge instructions, follow up and referral plans. medication usage, wound care, Demonstrated understanding of instructions, follow-up care, medications, wound care, Prescriptions given X 1, 15:51 Patient left the ED. hb Signatures: Dispatcher [employer] EDMaria Elena Decker, JEANETTE-C [employer] SPECIAL AGENT-Arlene Lomeli, RN RN [place] mg5 Corrections: (The following items were deleted from the chart) 14:16 14:15 VIS not applicable for this client. hb hb
[2023-10-05 15:56] VITALS: BP 135/82; TEMP 98.2; O2SAT 100
== END 2023-10-05 15:51 | disposition home or self-care (01) ==
LOC: ER 14:03
DX: S91.332A Puncture wound without foreign body, left foot, initial encounter (principal)
CPT/HCPCS: 90471; 99284